=== PATIENT | male | born 1950 | race Caucasian/White ===

== ENCOUNTER → 2017-07-22 | Outpatient (CLI) | payer OTHER ==
[2017-07-22 12:16] LABS: BASO % 0.3 %; BASO ABS # 0.02 K/uL (0-0.2); EOS % 4.6 %; EOS ABS # 0.31 K/uL (0-0.5); HEMATOCRIT 31.3 % (42-52); HEMOGLOBIN 10.2 g/dL (14.0-18.0); IG# 0.05 K/uL (0.00-0.02); LYMPH % 11.9 %; MEAN CELL VOLUME 84.1 fL (80-100); MEAN CORPUSCULAR HEMOGLOBIN 27.4 pg (25-34); MEAN CORPUSCULAR HGB CONC 32.6 g/dl (32-36); MEAN PLATELET VOLUME 9.9 fL (7.4-10.4); MONO % 5.9 %; NEUT % 76.6 %; NEUT ABS # 5.16 K/uL (1.4-6.5); PLATELET COUNT 239 K/uL (130-400); RED CELL DISTRIBUTION WIDTH CV 15.1 % (11.5-14.5); RED CELL DISTRIBUTION WIDTH SD 45.2 fL (36.4-46.3); WHITE BLOOD COUNT 6.74 K/uL (4.8-10.8)
[2017-07-22 12:50] LABS: BLOOD UREA NITROGEN 28 mg/dl (7-18); CALCIUM 9.5 mg/dl (8.5-10.1); CARBON DIOXIDE 22 mmol/L (21-32); CREATININE 2.14 mg/dl (0.60-1.40); GLUCOSE 141 mg/dl (70-99); SODIUM 141 mmol/L (136-145)
--- NOTE | 2017-08-05 11:07 | CODING QUERY NO DIAGNOSIS ---
Valid Physician Order Needed A valid physician order must be submitted in order to properly bill for the service(s) provided, including date of service(s), valid diagnosis, and physician signature. If these tests are done on a recurring basis the original physican order must be submitted in order to code and bill for the service(s) provided. Please fax us the original, signed physician order so that we may expedite billing to [phone] DOS 07/22/17 * CBC W/ AUTO DIFF * PARTIAL RENAL PROFILE Thank you Dasia [facility] Information Management
== END | disposition home or self-care (01) ==
LOC: C.LABSPEC 10:25
PROVIDERS: ATTEND Specialist
DX: N11.9 Chronic tubulo-interstitial nephritis, unspecified (principal); B96.3 Hemophilus influenzae [H. influenzae] as the cause of diseases classified elsewhere; Z48.816 Encounter for surgical aftercare following surgery on the genitourinary system

== ENCOUNTER → 2017-07-29 | Outpatient (CLI) | payer OTHER ==
[2017-07-29 12:14] LABS: BASO % 0.4 %; BASO ABS # 0.02 K/uL (0-0.2); EOS % 3.9 %; EOS ABS # 0.22 K/uL (0-0.5); HEMATOCRIT 32.1 % (42-52); HEMOGLOBIN 10.5 g/dL (14.0-18.0); IG# 0.03 K/uL (0.00-0.02); LYMPH % 14.6 %; LYMPH ABS # 0.83 K/uL (1.2-3.4); MEAN CELL VOLUME 83.8 fL (80-100); MEAN CORPUSCULAR HEMOGLOBIN 27.4 pg (25-34); MEAN CORPUSCULAR HGB CONC 32.7 g/dl (32-36); MEAN PLATELET VOLUME 10.5 fL (7.4-10.4); MONO % 4.2 %; MONO ABS # 0.24 K/uL (0.11-0.59); NEUT % 76.4 %; NEUT ABS # 4.34 K/uL (1.4-6.5); PLATELET COUNT 211 K/uL (130-400); RED CELL DISTRIBUTION WIDTH CV 15.6 % (11.5-14.5); RED CELL DISTRIBUTION WIDTH SD 47.5 fL (36.4-46.3); WHITE BLOOD COUNT 5.68 K/uL (4.8-10.8)
[2017-07-29 12:41] LABS: BLOOD UREA NITROGEN 23 mg/dl (7-18); CALCIUM 9.1 mg/dl (8.5-10.1); CARBON DIOXIDE 20 mmol/L (21-32); CREATININE 1.89 mg/dl (0.60-1.40); GLUCOSE 140 mg/dl (70-99); POTASSIUM 3.9 mmol/L (3.5-5.1); SODIUM 140 mmol/L (136-145)
== END | disposition home or self-care (01) ==
LOC: C.LABSPEC 08:48
PROVIDERS: ATTEND Specialist
DX: Z51.81 Encounter for therapeutic drug level monitoring (principal); Z79.2 Long term (current) use of antibiotics; N11.9 Chronic tubulo-interstitial nephritis, unspecified; N20.0 Calculus of kidney; B96.5 Pseudomonas (aeruginosa) (mallei) (pseudomallei) as the cause of diseases classified elsewhere; B96.20 Unspecified Escherichia coli [E. coli] as the cause of diseases classified elsewhere; C61 Malignant neoplasm of prostate

== ENCOUNTER → 2017-08-05 | Outpatient (CLI) | payer OTHER ==
[2017-08-05 17:35] LABS: BASO % 0.2 %; BASO ABS # 0.01 K/uL (0-0.2); EOS % 3.6 %; EOS ABS # 0.22 K/uL (0-0.5); HEMATOCRIT 34.5 % (42-52); HEMOGLOBIN 11.3 g/dL (14.0-18.0); IG# 0.01 K/uL (0.00-0.02); LYMPH ABS # 0.74 K/uL (1.2-3.4); MEAN CELL VOLUME 84.1 fL (80-100); MEAN CORPUSCULAR HEMOGLOBIN 27.6 pg (25-34); MEAN CORPUSCULAR HGB CONC 32.8 g/dl (32-36); MEAN PLATELET VOLUME 10.8 fL (7.4-10.4); MONO % 8.6 %; MONO ABS # 0.53 K/uL (0.11-0.59); NEUT % 75.4 %; NEUT ABS # 4.68 K/uL (1.4-6.5); PLATELET COUNT 224 K/uL (130-400); RED CELL DISTRIBUTION WIDTH CV 15.8 % (11.5-14.5); RED CELL DISTRIBUTION WIDTH SD 48.7 fL (36.4-46.3); WHITE BLOOD COUNT 6.19 K/uL (4.8-10.8)
[2017-08-05 17:53] LABS: BLOOD UREA NITROGEN 28 mg/dl (7-18); CALCIUM 9.8 mg/dl (8.5-10.1); CARBON DIOXIDE 25 mmol/L (21-32); CREATININE 1.79 mg/dl (0.60-1.40); GLUCOSE 69 mg/dl (70-99); POTASSIUM 4.3 mmol/L (3.5-5.1); SODIUM 138 mmol/L (136-145)
== END | disposition home or self-care (01) ==
LOC: C.LABSPEC 13:34
PROVIDERS: ATTEND Specialist
DX: Z51.81 Encounter for therapeutic drug level monitoring (principal); Z79.2 Long term (current) use of antibiotics; N20.0 Calculus of kidney; B96.5 Pseudomonas (aeruginosa) (mallei) (pseudomallei) as the cause of diseases classified elsewhere; B96.20 Unspecified Escherichia coli [E. coli] as the cause of diseases classified elsewhere; C61 Malignant neoplasm of prostate

== ENCOUNTER 2021-09-15 10:36 | Inpatient (IN) ==
--- NOTE | 2021-09-15 11:08 | Emergency Department Note ---
History of Present Illness General Chief complaint: Fever Stated complaint: CHEMO ON SAT, NOW HAS FEVER OF 101.2 Time Seen by Provider: 09/15/21 10:51 History of Present Illness 71-year-old male presents to the ED with a chief complaint of a fever. The patient states that he had chemotherapy on Saturday for bladder cancer. He has had this last week and then previously in August as well. This morning he awo ke with a fever of 101.2. He states that he felt pretty good this morning other than the fever. He does have a ureterostomy. Denies any upper respiratory complaints. No abdominal pains. No nausea vomiting. He states that he does feel little fatigued. No additional complaints. Allergies Allergy/AdvReac Type Severity Reaction Status Date / Time clopidogrel AdvReac itching Verified 09/15/21 12:25 Past Med/Surg History Social History Smoking Status: Never smoker Feels Safe at Home: Yes Review of Systems A total of 10 systems reviewed and were otherwise negative Physical Exam Vital Signs Vital Signs - 24 hr 09/15/21 10:40 09/15/21 10:59 09/15/21 11:00 Temperature 36.6 C Temperature Source Oral Pulse Rate 122 H 106 H 104 H Pulse Rate from SpO2 Sensor 106 H 104 H Pulse Rhythm Regular Pulse Strength Normal Respiratory Rate 20 19 17 Respiratory Effort / Characteristics Non-Labored Spontaneous Respiratory Depth Normal Respiratory Pattern Regular Blood Pressure 88/54 L Blood Pressure Mean 65 Pulse Oximetry 99 97 98 Oxygen Delivery Method Room Air Sepsis Recent Fever Within 48 Hours Yes Sepsis New/Unexplained Change in Mental Status N/A Sepsis Action Taken by Nursing No Action Required 09/15/21 11:13 09/15/21 11:15 09/15/21 11:22 Temperature Temperature Source Pulse Rate 103 H 103 H Pulse Rate from SpO2 Sensor 103 H 103 H Pulse Rhythm Pulse Strength Respiratory Rate 19 16 Respiratory Effort / Characteristics Respiratory Depth Respiratory Pattern Blood Pressure 113/64 Blood Pressure Mean 80 Pulse Oximetry 96 96 96 Oxygen Delivery Method Room Air Sepsis Recent Fever Within 48 Hours Sepsis New/Unexplained Change in Mental Status Sepsis Action Taken by Nursing 09/15/21 11:30 09/15/21 11:45 Temperature Temperature Source Pulse Rate 102 H 101 H Pulse Rate from SpO2 Sensor 105 H 101 H Pulse Rhythm Pulse Strength Respiratory Rate 18 20 Respiratory Effort / Characteristics Respiratory Depth Respiratory Pattern Blood Pressure 106/65 Blood Pressure Mean 78 Pulse Oximetry 95 96 Oxygen Delivery Method Sepsis Recent Fever Within 48 Hours Sepsis New/Unexplained Change in Mental Status Sepsis Action Taken by Nursing CONSTITUTIONAL/VITAL SIGNS: Reviewed / noted above. GENERAL: Non-toxic in appearance. INTEGUMENTARY: Warm, dry, and [place]. HEAD: Normocephalic. EYES: without scleral icterus or trauma. ENT/OROPHARYNX: clear and moist. LYMPHADENOPATHY/NECK: Is supple without lymphadenopathy or meningismus. RESPIRATORY: Clear to auscultation bilaterally. No increased work of breathing. CARDIOVASCULAR: Regular rate and rhythm. GI/ABDOMEN: Soft and nontender. No organomegaly or pulsatile mass. Ureterostomy. Urine was light yellow and clear. Some sediment. EXTREMITIES: Warm and well perfused. BACK: No CVA tenderness. NEUROLOGICAL: Intact without focal deficits. PSYCHIATRIC: normal affect. MUSCULOSKELETAL: Normally developed with good muscle tone. TRIAGE NURSING DOCUMENTATION REVIEWED. Course Administered Medications Sodium Chloride (Nss 1000ml) 1,000 mls @ 999 mls/hr IV .Q1H1M ONE Stop: 09/15/21 12:53 Last Admin: 09/15/21 12:00 Dose: 999 mls/hr Documented by: [id number] Discontinued Medications Cefepime HCl (Maxipime) 2,000 mg in 20 mls @ 5 mls/min IV NOW STA; Protocol Stop: 09/15/21 11:51 Last Admin: 09/15/21 12:00 Dose: 5 mls/min Documented by: [id number] Medical Decision Making Differential Diagnosis Differential includes viral illness, influenza, streptococcal pharyngitis, meningitis, pneumonia, sinusitis, UTI, pyelonephritis, otitis media. Medical Records Attestation: I reviewed the patient's medical records. Home Medications Current Medication List: was personally reviewed by me Laboratory Data Attestation: I reviewed the patient's lab results. Result diagrams: 09/15/21 11:10 09/15/21 11:10 Lab Results 09/15/21 09/15/21 09/15/21 Range/Units 11:10 11:10 11:10 WBC 16.03 H (4.8-10.8) K/uL RBC 2.86 L (4.7-6.1) M/uL Hgb 7.4 L (14.0-18.0) g/dL Hct 23.6 L (42-52) % MCV 82.5 (80-100) fL MCH 25.9 (25-34) pg MCHC 31.4 L (32-36) g/dL RDW Std Deviation 60.9 H (36.4-46.3) fL RDW Coeff of Staci 20.0 H (11.5-14.5) % Plt Count 39 L (130-400) K/uL PT 11.2 (9.0-12.0) Seconds INR 1.1 (0.9-1.1) APTT 29.6 (21.0-31.0) Seconds PTT Ratio 1.1 Sodium 135 L (136-145) mmol/L Potassium 3.6 (3.5-5.1) mmol/L Chloride 109 H (98-107) mmol/L Carbon Dioxide 17 L (21-32) mmol/L Anion Gap 9 (3-11) BUN 41 H (6-23) mg/dl Creatinine 1.70 H (0.6-1.4) mg/dl Est Cr Clr Drug Dosing 45.0 ml/min Est GFR ( Amer) 46.7 ml/min Est GFR (Non-Af Amer) 40.3 ml/min BUN/Creatinine Ratio 24.1 H (10-20) Glucose 158 H (70-99) mg/dl Lactate (0.4-2.0) mmol/L Calcium 8.0 L (8.5-10.1) mg/dl Magnesium 1.7 (1.7-2.4) mg/dl Total Bilirubin 0.9 (0.2-1.0) mg/dl AST 80 H (13-39) U/L ALT 135 H (7-52) U/L Alkaline Phosphatase 233 H (34-104) U/L Total Protein 5.6 L (6.0-8.3) gm/dl Albumin 2.3 L (3.4-5.0) gm/dl Globulin 3.3 (2.5-4.0) gm/dl Albumin/Globulin Ratio 0.7 L (0.9-2) Procalcitonin (0-0.5) ng/ml SARS-CoV-2, RNA, NAAT (NEGATIVE) 09/15/21 09/15/21 09/15/21 Range/Units 11:10 11:10 11:35 WBC (4.8-10.8) K/uL RBC (4.7-6.1) M/uL Hgb (14.0-18.0) g/dL Hct (42-52) % MCV (80-100) fL MCH (25-34) pg MCHC (32-36) g/dL RDW Std Deviation (36.4-46.3) fL RDW Coeff of Staci (11.5-14.5) % Plt Count (130-400) K/uL PT (9.0-12.0) Seconds INR (0.9-1.1) APTT (21.0-31.0) Seconds PTT Ratio Sodium (136-145) mmol/L Potassium (3.5-5.1) mmol/L Chloride (98-107) mmol/L Carbon Dioxide (21-32) mmol/L Anion Gap (3-11) BUN (6-23) mg/dl Creatinine (0.6-1.4) mg/dl Est Cr Clr Drug Dosing ml/min Est GFR ( Amer) ml/min Est GFR (Non-Af Amer) ml/min BUN/Creatinine Ratio (10-20) Glucose (70-99) mg/dl Lactate 3.0 H* (0.4-2.0) mmol/L Calcium (8.5-10.1) mg/dl Magnesium (1.7-2.4) mg/dl Total Bilirubin (0.2-1.0) mg/dl AST (13-39) U/L ALT (7-52) U/L Alkaline Phosphatase (34-104) U/L Total Protein (6.0-8.3) gm/dl Albumin (3.4-5.0) gm/dl Globulin (2.5-4.0) gm/dl Albumin/Globulin Ratio (0.9-2) Procalcitonin 1.80 H (0-0.5) ng/ml SARS-CoV-2, RNA, NAAT NEGATIVE (NEGATIVE) Imaging Data Radiologist's Impression: Chest X-Ray 09/15/21 11:02 XR chest 1V portable HISTORY: 71 years-old Male SEPSIS acute sepsis COMPARISON: None TECHNIQUE: Portable AP view of the chest FINDINGS: The cardiac silhouette is normal in size. There is no pneumothorax or large pleural effusion. Moderate right hemidiaphragmatic elevation. Linear subsegm ental bibasilar densities. A right IJ Kiniqb-n-Xydz catheter distal tip terminates over the superior cavoatrial junction. The bones appear grossly intact. IMPRESSION: Moderate right hemidiaphragmatic elevation with linear bibasilar densities suggestive of atelectasis/scarring. ACT 112: Negative or not required by law. The above report was generated using voice recognition software. It may contain grammatical, syntax or spelling errors. Electronically signed by: Gopal Dudley M.D. 09/15/2021 12:00 PM ECG Data Attestation: I personally reviewed and interpreted this ECG as follows: Additional Comments: Twelve-lead EKG: Per my interpretation shows a sinus tach at a rate of 105. No ST elevation. No PVCs. Normal QTC. MDM Narrative 71-year-old male presents with a fever in the setting of chemotherapy 3 days ago for bladder cancer Blood pressure is noted to be 88/54. Heart rate was 122. He is afebrile here but had a fever of 101.2 this morning at home. Twelve-lead EKG shows a sinus tach at a rate of 105. No ST elevation. With blood cell count of 16. Hemoglobin 7.4 point. states that he recently required blood transfusion in [place]. At that time his hemoglobin was around 8.7 following the blood transfusion. Lactic acid is 3.0. Mild transaminitis noted. COVID test was negative. Chest x-ray was negative for acute disease. The patient was empirically treated with IV antibiotics, cefepime. He was given a liter of normal saline IV. Because of his symptoms, he will be seen by the hospitalist for further inpatient evaluation and care. Impression & Plan Fever, Acute dehydration, Acute hypotension Discharge Plan Visit Data Chief Complaint: Fever Stated Complaint: CHEMO ON SAT, NOW HAS FEVER OF 101.2 ED Provider: Abdi Bean Discharge Problem: Fever, Acute dehydration, Acute hypotension Patient Disposition: Being Evaluated by Hospitalist Forms Stand Alone Forms: My [facility], Virtual Emergency Department, Important Visit Information Referrals Referrals: Rosalio Keys MD [Primary Care Provider] -
[2021-09-15 11:38] LABS: INR 1.1 (0.9-1.1); Partial Thromboplastin Ratio 1.1; Partial Thromboplastin Time 29.6 Seconds (21.0-31.0); Prothrombin Time 11.2 Seconds (9.0-12.0)
[2021-09-15] MEDS ORDERED: CEFEPIME 2,000 MG/20 ML VIAL IV STA (11:48)
[2021-09-15 11:51] LABS: Albumin Globulin Ratio 0.7 (0.9-2); Albumin Level 2.3 gm/dl (3.4-5.0); BUN Creatinine Ratio 24.1 (10-20); Bilirubin,Total 0.9 mg/dl (0.2-1.0); Est GFR (African American) 46.7 ml/min; Est GFR (Non-African American) 40.3 ml/min; Globulin 3.3 gm/dl (2.5-4.0); Magnesium 1.7 mg/dl (1.7-2.4); Potassium 3.6 mmol/L (3.5-5.1); Total Protein 5.6 gm/dl (6.0-8.3)
[2021-09-15] MEDS ORDERED: SODIUM CHLORIDE 0.9% 1000ML 1,000 ML IV ONE (11:53)
[2021-09-15 11:57] LABS: Hematocrit (blood only) 23.6 % (42-52); Hemoglobin 7.4 g/dL (14.0-18.0); Mean Corpuscular Hemoglobin 25.9 pg (25-34); Mean Corpuscular Hgb Conc 31.4 g/dL (32-36); Mean Corpuscular Volume 82.5 fL (80-100); RDW Standard Deviation 60.9 fL (36.4-46.3); Red Blood Count 2.86 M/uL (4.7-6.1); White Blood Count 16.03 K/uL (4.8-10.8)
--- NOTE | 2021-09-15 12:01 | XRay Report ---
XR chest 1V portable HISTORY: 71 years-old Male SEPSIS acute sepsis COMPARISON: None TECHNIQUE: Portable AP view of the chest FINDINGS: The cardiac silhouette is normal in size. There is no pneumothorax or large pleural effusion. Moderat e right hemidiaphragmatic elevation. Linear subsegmental bibasilar densities. A right IJ Cjxrxg-q-Bso t catheter distal tip terminates over the superior cavoatrial junction. The bones appear grossly inta ct. IMPRESSION: Moderate right hemidiaphragmatic elevation with linear bibasilar densities suggestive of atelectasis/scarring. ACT 112: Negative or not required by law. The above report was generated using voice recognition software. It may contain grammatical, syntax o r spelling errors. Electronically signed by: Gopal Dudley M.D. 09/15/2021 12:00 PM
[2021-09-15 12:16] LABS: Acanthocytes 1+; Anisocytosis Present; Basophils # (auto) 0.01 K/uL (0-0.2); Basophils % (auto) 0.1 %; Eosinophils # (auto) 0.23 K/uL (0-0.5); Eosinophils % (auto) 1.4 %; Immature Granulocytes # (auto) 0.09 K/uL (0.00-0.02); Immature Granulocytes % (auto) 0.6 %; Lymphocytes # (auto) 0.14 K/uL (1.2-3.4); Lymphocytes % (auto) 0.9 %; Monocytes # (auto) 0.02 K/uL (0.11-0.59); Monocytes % (auto) 0.1 %; Neutrophils # (auto) 15.54 K/uL (1.4-6.5); Neutrophils % (auto) 96.9 %; Ovalocytes 1+; Platelet Count 39 K/uL (130-400); Platelet Estimate Decreased (Normal)
--- NOTE | 2021-09-15 12:44 | History & Physical Report ---
Date of Service September 15, 2021 Assessment & Plan (1) Fever: Plan: Patient is 71 y/o M with PMH CAD s/p stent, HTN, dyslipidemia, CKD III-IV, chronic anemia, bladder cancer with metastasis to liver, kidney, lymph nodes s/p cystoprostatectomy and ileal conduit, currently undergoing chemo presented to ER with complaint of fever this morning of 101.2F. Reports feels rundown and has slight nausea. Denies abdominal pain. chronic exertional shortness of breath at baseline. Denies CP, PHILLIPS, hematuria, diarrhea. History fever in 08/2021 after initially starting chemo. Hospitalized at [facility] for possible pneumonia Today in ER T: 36.6C, R: 20, P:122, BP: 88/54 up to 106/65 99% on RA. WBC: 16, lactate: 3.0, procalcitonin: 1.8. CXR: bibasilar densities suggestive of atelectasis/scarring UA pending Was given 1L NSS, cefepime Blood cultures pending Urine culture pending MRSA swab pending Repeat lactate down to 1.6 Continue cefepime Gentle IVF CBC, CMP in a.m. (2) Bladder cancer: (3) History of ileal conduit: Plan: History of bladder cancer s/p cystoprostatectomy, ileal conduit Recent diagnosis of metastasis to liver, right kidney, abdominal lymph nodes 08/2021 started chemo and radiation however had to be held secondary to febrile illness Had gemcitabine 09/12/[address] Zulma Castro at [facility]. Plans to switch care locally with Dr Valenzuela (4) Sacral decubitus ulcer: Plan: +stage 2 sacral ulcer. no discharge wound nurse consult (5) Elevated LFTs: Plan: AST: 80, ALT: 135, alk phos: 233, T bili: 0.9. Labs from 09/12/2021: AST: 42, ALT: 85, Alk Phos: 247 Denies abdominal pain CMP in a.m. May need to consider abdominal imaging if worsening or develops abdominal discomfort (6) Chronic anemia: Plan: Thrombocytopenia Hgb: 7.4. Was 8.7 on 09/12/21. Plt: 39. Was 143 on 09/12/21. H/O Required PRBC transfusion in 08/2021 when Hgb dropped below 8 Ish, transfuse 1 unit PRBC (7) CKD (chronic kidney disease), stage III: Plan: Stage III-IV Baseline Cr~1.7 Cr: 1.7 Monitor and avoid nephrotoxic agents when possible (8) CAD (coronary artery disease): Plan: S/P stent Denies CP Continue statin, isosorbide (9) HTN (hypertension): Plan: Hold amlodipine as was hypotensive in ER History of Present Illness Chief Complaint: Fever Primary Care Provider: Rosalio Keys Patient is 71 y/o M with PMH CAD s/p stent, HTN, dyslipidemia, CKD III-IV, chronic anemia, bladder cancer with metastasis to liver, kidney, lymph nodes s/p cystoprostatectomy and ileal conduit, currently undergoing chemo presented to ER with complaint of fever. Reports this morning with temperature of 101.2F. Reports feels rundown and has slight nausea. Denies abdominal pain. Patient reports chronic exertional shortness of breath and feels this is at baseline. He reports no decreased amount of urine output or change in coloration or hematuria. Patient reports chronic constipation. Did have BM this morning which was formed. Denies melena or hematochezia. Takes Metamucil. Denies diaphoresis, vomiting, diarrhea, PHILLIPS, dizziness, syncope, vision changes, neck pain, CP, orthopnea, palpitations, cough, sore throat, choking, otalgia, rhinorrhea, abdominal pain, paresthesias, extremity weakness, extremity edema, rashes. Following with hematology/oncology at [facility] - Dr Cameron. Reports in August 2021 started chemoradiation however that had been discontinued secondary to febrile illness and hospitalization at [facility]. He reports at that time he had a questionable pneumonia and was treated with antibiotics discharged home. Patient reports he started chemo 1 week ago (carboplatin, gemcitabine). Last does of chemo on 09/12/21 (gemcitabine). Reports in August his hemoglobin was below 8 so he was given total 2 units PRBCs during his hospitalization. On 09/12/2021 hemoglobin of 8.7, PLT: 143, Cr: 1.7, AST: 42, ALT: 85, Alk Phos: 247. CXR: Right basilar atelectasis Today in ER T: 36.6C, R: 20, P:122, BP: 88/54, 99% on RA. WBC: 16, lactate: 3.0, procalcitonin: 1.8. CXR: bibasilar densities suggestive of atelectasis/scarring. Was given 1L NSS, cefepime. Allergies Allergy/AdvReac Type Severity Reaction Status Date / Time chlorhexidine AdvReac Unknown Unknown Unverified 09/15/21 12:59 clopidogrel AdvReac itching Verified 09/15/21 12:59 Home Medications Medication Instructions Recorded Confirmed Type Iron With Vitamin C 1 tab PO QAM 09/15/21 09/15/21 History Lactobacillus acidophilus 10 10,000 mmu cells PO BID 09/15/21 09/15/21 History billion cell capsule (Probiotic) albuterol sulfate 90 mcg/actuation 2 puff INHALATION Q6H PRN 09/15/21 09/15/21 History aerosol inhaler amlodipine 5 mg tablet 5 mg PO QAM 09/15/21 09/15/21 History atorvastatin 80 mg tablet 80 mg PO HS 09/15/21 09/15/21 History citalopram 20 mg tablet 20 mg PO HS 09/15/21 09/15/21 History docusate sodium 100 mg capsule 100 mg PO QAM 09/15/21 09/15/21 History (Colace) hydrocodone 5 mg-acetaminophen 325 1 tab PO Q6H PRN 09/15/21 09/15/21 History mg tablet isosorbide mononitrate 60 mg 60 mg PO QAM 09/15/21 09/15/21 History tablet,extended release 24 hr mirtazapine 15 mg tablet 7.5 mg PO HS 09/15/21 09/15/21 History nitroglycerin 0.4 mg sublingual 0.4 mg SUBLINGUAL Q5M PRN 09/15/21 09/15/21 History tablet ondansetron HCl 4 mg tablet 4 mg PO Q8H PRN 09/15/21 09/15/21 History prochlorperazine maleate 10 mg 10 mg PO Q6H PRN 09/15/21 09/15/21 History tablet Past Med/Surg History Medical History Bladder cancer CAD (coronary artery disease) Chronic anemia CKD (chronic kidney disease), stage III III-IV HTN (hypertension) Surgical History History of cholecystectomy History of heart artery stent History of ileal conduit S/P radical cystoprostatectomy Family History Brother Stroke Mother Stroke Father Heart disease Social History Smoking Status: Never smoker Second Hand Exposure: No; Do You Dip or Chew Tobacco: No; Tobacco Cessation Education Requested by Patient: No Hx Alcohol Use: Yes Hx Substance Use: No Preferred Language: Uz[place] Communication Ability: Effective Blood Or Blood Bank Technician Required: No Beliefs That Will Affect Care: None Current Living Situation: Spouse Other Information That Helps Us Care for You: No Feels Safe at Home: Yes Safety Concerns: Feels Safe At This Time Assistive Devices: None Review of Systems Review of Systems: All systems reviewed & are unremarkable except as noted in HPI & below Physical Exam Physical Exam: General: no distress, chronic ill appearing Head: normocephalic, atraumatic Eyes: PERRL, EOM's intact, conjunctiva non-injected, anicteric ENT: normal inspection external ears, nose, mucous membranes dry Neck: supple, trachea midline, non-tender Lungs: clear, no respiratory distress, no wheezing/rhonchi/rales CV: RRR, no murmur, no pretibial edema Abd: +stoma right abdomen with clear yellow urine noted in bag, normal BS, soft, non-tender Ext: no cyanosis, no calf tenderness Neuro: A&O x 3, no focal deficits noted, normal affect Skin: warm, dry, Sacrum: +nonblanching erythema with two stage 2 areas of approx 0.5cm ulcer, no discharge Results & Data Results & Data ([facility]) Vital Signs (Past 12 Hours) Vital Signs Temp Pulse Resp BP Pulse Ox 09/15/21 12:42 18 98 09/15/21 11:45 101 H 20 96 09/15/21 11:30 102 H 18 106/65 95 09/15/21 11:22 96 09/15/21 11:15 103 H 16 96 09/15/21 11:13 103 H 19 113/64 96 09/15/21 11:00 104 H 17 98 09/15/21 10:59 106 H 19 97 09/15/21 10:40 36.6 C 122 H 20 88/54 L 99 Laboratory Results Short CBC 09/15/21 Range/Units 11:10 WBC 16.03 H (4.8-10.8) K/uL Hgb 7.4 L (14.0-18.0) g/dL Hct 23.6 L (42-52) % Plt Count 39 L (130-400) K/uL BMP 09/15/21 11:10 Sodium 135 L Potassium 3.6 Chloride 109 H Carbon Dioxide 17 L BUN 41 H Creatinine 1.70 H Glucose 158 H Calcium 8.0 L Liver Function 09/15/21 Range/Units 11:10 Total Bilirubin 0.9 (0.2-1.0) mg/dl AST 80 H (13-39) U/L ALT 135 H (7-52) U/L Alkaline Phosphatase 233 H (34-104) U/L Albumin 2.3 L (3.4-5.0) gm/dl Urine 09/15/21 Range/Units 12:40 Urine Color Yellow Urine Appearance Clear (Clear) Urine pH 6.0 (4.5-7.5) Ur Specific [place] 1.014 (1.000-1.030) Urine Protein 2+ H (Negative) Urine Glucose (UA) Negative (Negative) Diagnostic Findings Chest X-Ray 09/15/21 11:02 XR chest 1V portable HISTORY: 71 years-old Male SEPSIS acute sepsis COMPARISON: None TECHNIQUE: Portable AP view of the chest FINDINGS: The cardiac silhouette is normal in size. There is no pneumothorax or large pleural effusion. Moderate right hemidiaphragmatic elevation. Linear subsegmental bibasilar densities. A right IJ Dmqaam-j-Qjft catheter distal tip terminates over the superior cavoatrial junction. The bones appear grossly intact. IMPRESSION: Moderate right hemidiaphragmatic elevation with linear bibasilar densities suggestive of atelectasis/scarring. ACT 112: Negative or not required by law. The above report was generated using voice recognition software. It may contain grammatical, syntax or spelling errors. Electronically signed by: Gopal Dudley M.D. 09/15/2021 12:00 PM Supervising Physician Co-Signing Physician Notes Care coordinated with Britney Vazquez PA-C. Agree with above note. Patient seen and examined. Please refer to her notes for full details. Vital signs reviewed. Physical exam: General exam: Alert and oriented. Not in acute distress. CVS: S1 and S2 heard, regular rate and rhythm, no murmurs. RS: Clear to auscultation, no wheezing or crackles. ABD: Soft, bowel sounds present, nontender, no distention. FOOD TRADES ASSISTANTS: Nonfocal. EXT: No edema, no erythema. Labs: Reviewed. Assessment and plan: 71Y M with hx of bladder cancer s/p s/p cystoprostatectomy and ileal conduit about 6yrs ago. In June 2021 he was having lot of sob and workup revealed metastatic bladder cancer with mets to liver, kidney and lymph nodes and on chemo since august. After first Chemo he developed fever and was admitted at [facility] and treated with iv abx for possible pneumonia. Currently he is getting chemo every Saturday(Two tuesdys in a row and then skipping one saturday). He had chemo this week. Today morning he was having fever, feeling weak and tried. nauseaous. appetite down. No chest pain. Has chronic exertional sob. currently hemodynamics stable. Febrile illness Recent chemo Empiric iv cefepime follw cultures and response MRSa screen close monitor. Elevated LFT follow repeat labs possible from mets. Anemia and thombocytopenia Hb 7.4 platelets 37 mostly from chemo blood consent obtained follow labs. Other diagnosis and plan of care as per Britney Vazquez PA-C. Milton mak MD. (1) Fever Fever type: unspecified Qualified Code(s): R50.9 - Fever, unspecified
[2021-09-15 12:51] LABS: Appearance Urine Clear (Clear); Bilirubin Urine Negative (Negative); Blood Urine 3+ (Negative); Color Urine Yellow; Glucose Urine UA Negative (Negative); Ketones Urine Negative (Negative); Leukocyte Esterase Urine 1+ (Negative); Nitrite Urine Negative (Negative); Protein Urine 2+ (Negative); Specific Gravity Urine 1.014 (1.000-1.030); Urobilinogen Urine Negative (Negative); WBC Urine Automated >30 /hpf (0-5)
[2021-09-15 13:32] LABS: RBC Urine Automated >30 /hpf (0-4)
[2021-09-15 13:33] LABS: Bacteria Urine Automated 1+ (Negative)
[2021-09-15] MEDS ORDERED: POLYETHYLENE (MIRALAX) 17 GM PACK PO PRN (15:16)
[2021-09-15] MEDS ORDERED: ACETAMINOPHEN 325 MG TAB PO PRN (15:16)
[2021-09-15] MEDS ORDERED: SODIUM CHLORIDE 0.9% 250 ML IV PRN (15:16)
[2021-09-15] MEDS ORDERED: NITROGLYCERIN SL 0.4 MG/TAB TAB SL PRN (15:16)
[2021-09-15] MEDS: D5W AND NSS 1,000 ML IV SCH (17:37)
--- NOTE | 2021-09-15 19:41 | Electrocardiogram Report ---
Test Reason : Blood Pressure : / mmHG Vent. Rate : 105 BPM Atrial Rate : 105 BPM P-R Int : 130 ms QRS Dur : 082 ms QT Int : 314 ms P-R-T Axes : 048 018 074 degrees QTc Int : 415 ms Sinus tachycardia Otherwise normal ECG No previous ECGs available Confirmed by Duane Dallas ([id number]) on 09/15/2021 7:41:01 PM Referred By: REFERRED SELF Confirmed By:Duane Dallas
[2021-09-15] MEDS: CITALOPRAM 20 MG TAB PO SCH (21:41)
[2021-09-15] MEDS: CEFEPIME 2,000 MG in SYRINGE 0 ML IV SCH (21:41)
[2021-09-15] MEDS: ATORVASTATIN 40 MG TAB PO SCH (21:41)
[2021-09-15] MEDS: MIRTAZAPINE TAB 15 MG TAB PO SCH (21:42)
[2021-09-15] MEDS ORDERED: Nursing to Pharmacy Communication SCH (22:00)
[2021-09-16] MEDS ORDERED: [UNRECOGNIZED DRUG - OTHER] PO SCH (09:00)
[2021-09-16] MEDS: ADVANCED PROBIOTIC 1250 MG CAPSULE PO SCH (09:10)
[2021-09-16] MEDS: DOCUSATE SODIUM 100 MG CAP PO SCH (09:10)
[2021-09-16] MEDS: CEFEPIME 2,000 MG in SYRINGE 0 ML IV SCH ×2 (09:10→21:13)
[2021-09-16] MEDS: ISOSORBIDE MONO EXTENDED REL 60 MG TABCR PO SCH (09:11)
[2021-09-16 09:49] LABS: Albumin Globulin Ratio 0.7 (0.9-2); BUN Creatinine Ratio 26.7 (10-20); Bilirubin,Total 0.9 mg/dl (0.2-1.0); Calcium 7.5 mg/dl (8.5-10.1); Creatinine Clr Calc Pharmacy 52.4 ml/min; Est GFR (African American) 56.1 ml/min; Est GFR (Non-African American) 48.4 ml/min; Globulin 2.8 gm/dl (2.5-4.0); Potassium 3.5 mmol/L (3.5-5.1); Total Protein 4.8 gm/dl (6.0-8.3)
[2021-09-16 10:01] LABS: Acanthocytes 1+; Anisocytosis Present; Eosinophils # (auto) 0.06 K/uL (0-0.5); Eosinophils % (auto) 0.7 %; Hematocrit (blood only) 21.9 % (42-52); Immature Granulocytes # (auto) 0.02 K/uL (0.00-0.02); Immature Granulocytes % (auto) 0.2 %; Lymphocytes # (auto) 0.17 K/uL (1.2-3.4); Mean Corpuscular Hemoglobin 26.3 pg (25-34); Mean Corpuscular Volume 82.3 fL (80-100); Neutrophils # (auto) 8.32 K/uL (1.4-6.5); Neutrophils % (auto) 97.1 %; Ovalocytes 1+; Platelet Count 23 K/uL (130-400); Platelet Estimate SIGNIFIC DECREASED (Normal); RDW Coefficient of Variation 19.3 % (11.5-14.5); RDW Standard Deviation 59.2 fL (36.4-46.3); Red Blood Count 2.66 M/uL (4.7-6.1); White Blood Count 8.57 K/uL (4.8-10.8)
[2021-09-16] MEDS: D5W AND NSS 1,000 ML IV SCH (11:01)
[2021-09-16] MEDS ORDERED: ACETAMINOPHEN 325 MG TAB PO ONE (11:41)
[2021-09-16] MEDS ORDERED: SODIUM CHLORIDE 0.9% 250 ML IV PRN (11:41)
[2021-09-16] MEDS ORDERED: diphenhydrAMINE Capsule 25 MG CAP PO ONE (11:41)
--- NOTE | 2021-09-16 12:10 | Hospitalist Progress Note ---
Date of Service September 16, 2021 Assessment & Plan (1) Sepsis: Plan: Uncertain source, no evidence of pneumonia, possible UTI although this may be contamination from the bag. He also has a Stag II sacral ulcer, so skin bacteria also a possibility vs adverse drug effect from the chemotherapy as infusion was 2 days prior to arrival. This list is not exhaustive. He is resuscitated and clinically feels improved. Cont cefepime pending cultures and continued clinical improvement. Cont IVF for now until blood given and he is eating more robustly. (2) Bladder cancer: Plan: History of bladder cancer s/p cystoprostatectomy, ileal conduit Recent diagnosis of metastasis to liver, right kidney, abdominal lymph nodes 08/2021 started chemo and radiation however had to be held secondary to febrile illness Had gemcitabine 09/12/[address] Zulma Castro at [facility]. Plans to switch care locally with Dr Valenzuela (3) Anemia associated with chemotherapy: Plan: Anemia likely 2/2 recent chemotherapy and also possible occult GI blood loss with known mass that was radiated for bleeding one month ago. Will give and additional unit of blood at this time with current H/H and symptoms with standing. Repeat CBC this evening. No overt bleeding is seen. (4) Thrombocytopenia: Plan: Platelets were 143 on 09/12 per outpatient records. Thrombocytopenia is likely multifactorial including consumption from sepsis, recent chemotherapy and possibly dilution after fluid resuscitation. Cont to trend. Transfuse if <10K or if <20K if bleeding or fever present. (5) History of ileal conduit: (6) Sacral decubitus ulcer: Plan: +stage 2 sacral ulcer. no discharge wound nurse consult (7) Elevated LFTs: Plan: AST/ALT improved with treatment overnight. Outside of new kidney stones in his urine bag, not seeing any further reason to image him at this time. He has no abdominal pain and is tolerating PO. Cont to monitor. (8) CKD (chronic kidney disease), stage III: Plan: Currently at baseline, avoid nephrotoxic agents and renally dose meds as able. (9) CAD (coronary artery disease): Plan: chronic, stable S/P stent in past. Denies CP. Cont medical management with statin, isosorbide (10) HTN (hypertension): Plan: Hold amlodipine as was hypotensive in ER (11) DVT prophylaxis: Plan: SCDs, chemoprophylaxis is contraindicated. Full Dispo-pending clinical improvement and culture results. I spoke with her daughter, Lilo, regarding his care plan. Luli Malave DO [facility] Hospitalist Admission and Anticipated Discharge Date Admission Date: September 15, 2021 Subjective 71 yo M with bladder cancer with metastatic disease presents 2 days after gemcitabine and cisplatin with a fever. Denies respiratory symptoms, chronic SOB not much worse than his recent baseline in last 6 months, denied any urinary symptoms or blood into his bag, however, he does notice that he is passing some kidney stones here. He has had these before and is not having any pain from this. No fever overnight and he reports feeling better today. Received 1 unit of blood last night and H/H down to 03/22. Patient is reporting lightheadedness with standing. Has a h/o radiation to bowels last month for some rectal bleeding from a metastatic mass, but reports stool has appeared unchanged in recent weeks. Patient noted a fever in Dec after last chemotherapy trial, also. Presumed pneumonia as the source, but daughter, who is a physician, said it was somewhat undetermined. Review of Systems Review of Systems: All systems were reviewed and negative except as indicated above. Physical Exam Physical Exam: CONSTITUTIONAL: WNWD, vitals as above, NAD EYES: normal conjunctivae, no scleral icterus, no fundoscopic abnormality ENT: external ear and nose normal, oropharynx clear, NECK: trachea midline, RESPIRATORY: clear to auscultation bilaterally, no crackles, rales or wheezes, normal respiratory effort CARDIOVASCULAR: regular rate and rhythm, S1 and 2 heard without murmurs, gallops or rubs, no JVD, no peripheral edema CHEST: port accessed in anterior right chest GASTROINTESTINAL: soft, nontender, no guarding, ileal conduit draining into catheter bag with light yellow urine, no blood. MUSCULOSKELETAL: strength 5/5 throughout, head is normocephalic and atraumatic SKIN: warm and dry, NEUROLOGIC: No facial palsy, no dysarthria. CN 2-12 grossly intact, no sensory deficit, normal cognition, normal speech, no tremor PSYCHIATRIC: alert cooperative and oriented to person, place and time. Results & Data Results & Data ([facility]) Vital Signs (Past 12 Hours) Vital Signs Temp Pulse Pulse Resp BP Pulse Ox 09/16/21 10:55 36.7 C 102 H 18 114/65 96 09/16/21 09:46 94 H 09/16/21 07:39 36.7 C 86 19 124/71 96 09/16/21 03:57 37.5 C 96 H 18 123/66 98 Laboratory Results Short CBC 09/15/21 09/15/21 09/15/21 Range/Units 11:10 12:54 15:35 WBC 16.03 H (4.8-10.8) K/uL Hgb 7.4 L (14.0-18.0) g/dL Hct 23.6 L (42-52) % Plt Count 39 L (130-400) K/uL Blood Type A Positive Blood Type Recheck A Positive Antibody Screen NEGATIVE Crossmatch See Detail 09/16/21 Range/Units 09:15 WBC 8.57 (4.8-10.8) K/uL Hgb 7.0 L (14.0-18.0) g/dL Hct 21.9 L (42-52) % Plt Count 23 L* (130-400) K/uL Blood Type Blood Type Recheck Antibody Screen Crossmatch BMP 09/16/21 09:15 Sodium 135 L Potassium 3.5 Chloride 111 H Carbon Dioxide 19 L BUN 39 H Creatinine 1.46 H Glucose 118 H Calcium 7.5 L Liver Function 09/16/21 Range/Units 09:15 Total Bilirubin 0.9 (0.2-1.0) mg/dl AST 32 (13-39) U/L ALT 83 H (7-52) U/L Alkaline Phosphatase 171 H (34-104) U/L Albumin 2.0 L (3.4-5.0) gm/dl Urine 09/15/21 Range/Units 12:40 Urine Color Yellow Urine Appearance Clear (Clear) Urine pH 6.0 (4.5-7.5) Ur Specific [place] 1.014 (1.000-1.030) Urine Protein 2+ H (Negative) Urine Glucose (UA) Negative (Negative) Medications Administered Current Inpatient Medications Acetaminophen (Acetaminophen 325 Mg Tab) 650 mg PO Q4H PRN PRN Reason: Pain or Fever Stop: 10/15/21 15:15 Acetaminophen (Acetaminophen 325 Mg Tab) 650 mg PO PRE-TREAT ONE Stop: 09/16/21 19:41 Atorvastatin Calcium (Atorvastatin 40 Mg Tab) 80 mg PO HS [facility] Stop: 10/15/21 20:59 Last Admin: 09/15/21 21:41 Dose: 80 mg Documented by: Citalopram Hydrobromide (Citalopram 20 Mg Tab) 20 mg PO HS [facility] Stop: 10/15/21 20:59 Last Admin: 09/15/21 21:41 Dose: 20 mg Documented by: Diphenhydramine HCl (Diphenhydramine Capsule 25 Mg Cap) 12.5 mg PO PRE-TREAT ONE Stop: 09/16/21 19:42 Docusate Sodium (Docusate Sodium 100 Mg Cap) 100 mg PO QAM [facility] Stop: 10/16/21 08:59 Last Admin: 09/16/21 09:10 Dose: 100 mg Documented by: Heparin Sodium (Porcine) (Heparin 100 Unit/Ml 5ml Flush) 5 ml FLUSH PRN PRN PRN Reason: Flush Stop: 10/16/21 01:56 Cefepime HCl 2,000 mg/ Syringe 20 mls @ 5 mls/min IV Q12 [facility]; Protocol Stop: 09/17/21 20:59 Last Admin: 09/16/21 09:10 Dose: 5 mls/min Documented by: Sodium Chloride (Nss) 250 mls @ 15 mls/hr IV .[id number] PRN PRN Reason: For Transfusion Stop: 10/15/21 15:15 Dextrose/Sodium Chloride (D5w And Nss) 1,000 mls @ 80 mls/hr IV .[id number] [facility] Stop: 09/16/21 21:29 Last Admin: 09/16/21 11:01 Dose: 80 mls/hr Documented by: Sodium Chloride (Nss) 250 mls @ 15 mls/hr IV .[id number] PRN PRN Reason: For Transfusion Stop: 09/16/21 21:42 Isosorbide Mononitrate (Isosorbide [place] Extended Rel 60 Mg Tabcr) [facility] [place]: 10/16/21 08:59 Last Admin: 09/16/21 09:11 Dose: 60 mg Documented by: Lactobacillus Acidoph/Casei/Rhamnos (Advanced Probiotic 1250 Mg Capsule) 2 cap PO DAILY [facility] Stop: 10/16/21 08:59 Last Admin: 09/16/21 09:10 Dose: 2 cap Documented by: Mirtazapine (Mirtazapine Tab 15 Mg Tab) 7.5 mg PO HS [facility] Stop: 10/15/21 20:59 Last Admin: 09/15/21 21:42 Dose: 7.5 mg Documented by: Nitroglycerin (Nitroglycerin Sl 0.4 Mg/Tab Tab) 0.4 mg SL Q5M PRN PRN Reason: Chest Pain Stop: 10/15/21 15:15 Ondansetron HCl (Ondansetron Inj 2 Mg/Ml 2 Ml Vial) 4 mg IV Q6H PRN PRN Reason: Nausea Stop: 10/15/21 15:15 Polyethylene Glycol (Polyethylene (Miralax) 17 Gm Pack) 17 gm PO DAILY PRN PRN Reason: Constipation Stop: 10/15/21 15:15
[2021-09-16 19:06] LABS: Echinocytes 1+; Eosinophils # (auto) 0.06 K/uL (0-0.5); Hematocrit (blood only) 23.5 % (42-52); Hemoglobin 7.7 g/dL (14.0-18.0); Immature Granulocytes # (auto) 0.01 K/uL (0.00-0.02); Immature Granulocytes % (auto) 0.2 %; Lymphocytes # (auto) 0.22 K/uL (1.2-3.4); Lymphocytes % (auto) 3.7 %; Mean Corpuscular Hemoglobin 27.1 pg (25-34); Mean Corpuscular Hgb Conc 32.8 g/dL (32-36); Mean Corpuscular Volume 82.7 fL (80-100); Monocytes # (auto) 0.01 K/uL (0.11-0.59); Monocytes % (auto) 0.2 %; Neutrophils # (auto) 5.59 K/uL (1.4-6.5); Neutrophils % (auto) 94.9 %; Ovalocytes 1+; Platelet Count 24 K/uL (130-400); Platelet Estimate SIGNIFIC DECREASED (Normal); RDW Coefficient of Variation 18.7 % (11.5-14.5); RDW Standard Deviation 56.8 fL (36.4-46.3); Red Blood Count 2.84 M/uL (4.7-6.1); White Blood Count 5.89 K/uL (4.8-10.8)
[2021-09-16] MEDS: CITALOPRAM 20 MG TAB PO SCH (21:13)
[2021-09-16] MEDS: ATORVASTATIN 40 MG TAB PO SCH (21:13)
[2021-09-16] MEDS: MIRTAZAPINE TAB 15 MG TAB PO SCH (21:13)
[2021-09-17] MEDS: ADVANCED PROBIOTIC 1250 MG CAPSULE PO SCH (08:13)
[2021-09-17] MEDS: ISOSORBIDE MONO EXTENDED REL 60 MG TABCR PO SCH (08:13)
[2021-09-17] MEDS: DOCUSATE SODIUM 100 MG CAP PO SCH (08:14)
[2021-09-17] MEDS: CEFEPIME 2,000 MG in SYRINGE 0 ML IV SCH (08:20)
[2021-09-17 08:45] LABS: Platelet Count 15 K/uL (130-400)
[2021-09-17 08:46] LABS: Anisocytosis Present; Echinocytes 1+; Eosinophils # (auto) 0.07 K/uL (0-0.5); Eosinophils % (auto) 2.8 %; Hematocrit (blood only) 23.1 % (42-52); Hemoglobin 7.4 g/dL (14.0-18.0); Immature Granulocytes # (auto) 0.03 K/uL (0.00-0.02); Immature Granulocytes % (auto) 1.2 %; Lymphocytes # (auto) 0.11 K/uL (1.2-3.4); Lymphocytes % (auto) 4.4 %; Mean Corpuscular Hemoglobin 26.8 pg (25-34); Mean Corpuscular Volume 83.7 fL (80-100); Monocytes # (auto) 0.01 K/uL (0.11-0.59); Monocytes % (auto) 0.4 %; Neutrophils # (auto) 2.29 K/uL (1.4-6.5); Neutrophils % (auto) 91.2 %; Platelet Estimate SIGNIFIC DECREASED (Normal); Poikilocytosis Present; RDW Coefficient of Variation 18.7 % (11.5-14.5); RDW Standard Deviation 58.2 fL (36.4-46.3); Red Blood Count 2.76 M/uL (4.7-6.1); Spherocytes 1+; White Blood Count 2.51 K/uL (4.8-10.8)
[2021-09-17 08:56] LABS: BUN Creatinine Ratio 28.1 (10-20); Calcium 7.6 mg/dl (8.5-10.1); Creatinine Clr Calc Pharmacy 59.8 ml/min; Est GFR (African American) 65.7 ml/min; Est GFR (Non-African American) 56.7 ml/min; Magnesium 1.7 mg/dl (1.7-2.4); Phosphorus 2.3 mg/dl (2.5-4.9); Potassium 3.5 mmol/L (3.5-5.1)
--- NOTE | 2021-09-17 13:57 | Hospitalist Progress Note ---
Date of Service September 17, 2021 Assessment & Plan (1) Sepsis: Plan: Uncertain source, no evidence of pneumonia, possible UTI although this may be contamination from the bag. He also has a Stage II sacral ulcer, so skin bacteria also a possibility vs adverse drug effect from the chemotherapy as infusion was 2 days prior to arrival. He is resuscitated and clinically feels improved. Will de-escalate cefepime to amoxicillin to cover the enterococcus and alpha strep growing in his urine. (2) UTI (urinary tract infection) due to Enterococcus: Plan: Complicated UTI with sepsis on admission. Transition (3) Pancytopenia due to antineoplastic chemotherapy: Plan: Anemia likely 2/2 recent chemotherapy and also possible occult GI blood loss with known mass that was radiated for bleeding one month ago. No overt bleeding is seen. Two units of blood given this admission and he remains anemic. Threshold to transfuse would be <7/21. Platelets were 143 on 09/12 per outpatient records. Thrombocytopenia is likely multifactorial including consumption from sepsis, recent chemotherapy and possibly dilution after fluid resuscitation. Cont to trend. Transfuse if <10K or if <20K if bleeding or fever present. No transfusion indicated at this time. (4) Sacral decubitus ulcer: Plan: +stage 2 sacral ulcer. no discharge wound nurse consult (5) Elevated LFTs: Plan: AST/ALT improved with treatment overnight. Outside of new kidney stones in his urine bag, not seeing any further reason to image him at this time. He has no abdominal pain and is tolerating PO. Likely related to chemotherapy and this is improved. No abominal pain. No further workup at this time. (6) Bladder cancer: Plan: History of bladder cancer s/p cystoprostatectomy, ileal conduit Recent diagnosis of metastasis to liver, right kidney, abdominal lymph nodes 08/2021 started chemo and radiation however had to be held secondary to febrile illness Had gemcitabine 09/12/[address] Zulma Castro at [facility]. Plans to switch care locally with Dr Valenzuela (7) History of ileal conduit: (8) CKD (chronic kidney disease), stage III: Plan: Currently at baseline, avoid nephrotoxic agents and renally dose meds as able. (9) CAD (coronary artery disease): Plan: chronic, stable S/P stent in past. Denies CP. Cont medical management with statin, isosorbide (10) HTN (hypertension): Plan: Hold amlodipine as was hypotensive in ER (11) DVT prophylaxis: Plan: SCDs, chemoprophylaxis is contraindicated. Full Dispo-pending clinical improvement and culture results. I spoke with her daughter, Lilo, regarding his care plan. Luli Malave DO [facility] Hospitalist Admission and Anticipated Discharge Date Admission Date: September 15, 2021 Subjective 71 yo M with bladder cancer with metastatic disease presents 2 days after gemcitabine (cisplatin was the week prior). Denies respiratory symptoms, chronic SOB not much worse than his recent baseline in last 6 months, denied any urinary symptoms or blood into his bag, however, he does notice that he is passing some kidney stones here. He has had these before and is not having any pain from this. Received 2 units of blood--still anemic. Patient is reporting lightheadedness with standing. Has a h/o radiation to bowels last month for some rectal bleeding from a metastatic mass, but reports stool has appeared unchanged in recent weeks. Today denies any symptoms. tolerating PO, denies CP, SOB, abdominal pain, fevers, chills. Reviewed studies and care plan wtih his daughter, who is a physician, at bedside. Review of Systems Review of Systems: All systems were reviewed and negative except as indicated above. Physical Exam Physical Exam: CONSTITUTIONAL: WNWD, vitals as above, NAD EYES: normal conjunctivae, no scleral icterus, no fundoscopic abnormality ENT: external ear and nose normal, oropharynx clear, NECK: trachea midline, RESPIRATORY: clear to auscultation bilaterally, no crackles, rales or wheezes, normal respiratory effort CARDIOVASCULAR: regular rate and rhythm, S1 and 2 heard without murmurs, gallops or rubs, no JVD, no peripheral edema CHEST: port accessed in anterior right chest GASTROINTESTINAL: soft, nontender, no guarding, ileal conduit draining into catheter bag with light yellow urine, no blood. MUSCULOSKELETAL: strength 5/5 throughout, head is normocephalic and atraumatic SKIN: warm and dry, NEUROLOGIC: No facial palsy, no dysarthria. CN 2-12 grossly intact, no sensory deficit, normal cognition, normal speech, no tremor PSYCHIATRIC: alert cooperative and oriented to person, place and time. Results & Data Results & Data ([facility]) Vital Signs (Past 12 Hours) Vital Signs Temp Pulse Pulse Resp BP Pulse Ox 09/17/21 12:05 36.7 C 98 H 22 126/67 98 09/17/21 11:48 86 09/17/21 07:53 37.1 C 89 20 124/73 98 09/17/21 04:00 37.0 C 83 18 117/68 96 Laboratory Results Short CBC 09/16/21 09/17/21 Range/Units 18:20 07:35 WBC 5.89 2.51 L (4.8-10.8) K/uL Hgb 7.7 L 7.4 L (14.0-18.0) g/dL Hct 23.5 L 23.1 L (42-52) % Plt Count 24 L* 15 L* (130-400) K/uL BMP 09/17/21 07:35 Sodium 137 Potassium 3.5 Chloride 114 H Carbon Dioxide 18 L BUN 36 H Creatinine 1.28 Glucose 80 Calcium 7.6 L Medications Administered Current Inpatient Medications Acetaminophen (Acetaminophen 325 Mg Tab) 650 mg PO Q4H PRN PRN Reason: Pain or Fever Stop: 10/15/21 15:15 Atorvastatin Calcium (Atorvastatin 40 Mg Tab) 80 mg PO [facility] Stop: 10/15/21 20:59 Last Admin: 09/16/21 21:13 Dose: 80 mg Documented by: Citalopram Hydrobromide (Citalopram 20 Mg Tab) 20 mg PO [facility] Stop: 10/15/21 20:59 Last Admin: 09/16/21 21:13 Dose: 20 mg Documented by: Docusate Sodium (Docusate Sodium 100 Mg Cap) 100 mg PO [facility] Stop: 10/16/21 08:59 Last Admin: 09/17/21 08:14 Dose: Not Given Documented by: Heparin Sodium (Porcine) (Heparin 100 Unit/Ml 5ml Flush) 5 ml FLUSH PRN PRN PRN Reason: Flush Stop: 10/16/21 01:56 Cefepime HCl 2,000 mg/ Syringe 20 mls @ 5 mls/min IV Q12 [facility]; Protocol Stop: 09/17/21 20:59 Last Admin: 09/17/21 08:20 Dose: 5 mls/min Documented by: Isosorbide Mononitrate (Isosorbide [place] Extended Rel 60 Mg Tabcr) 60 mg PO [facility] Stop: 10/16/21 08:59 Last Admin: 09/17/21 08:13 Dose: 60 mg Documented by: Lactobacillus Acidoph/Casei/Rhamnos (Advanced Probiotic 1250 Mg Capsule) 2 cap PO DAILY [facility] Stop: 10/16/21 08:59 Last Admin: 09/17/21 08:13 Dose: 2 cap Documented by: Mirtazapine (Mirtazapine Tab 15 Mg Tab) 7.5 mg PO HS [facility] Stop: 10/15/21 20:59 Last Admin: 09/16/21 21:13 Dose: 7.5 mg Documented by: Nitroglycerin (Nitroglycerin Sl 0.4 Mg/Tab Tab) 0.4 mg SL Q5M PRN PRN Reason: Chest Pain Stop: 10/15/21 15:15 Ondansetron HCl (Ondansetron Inj 2 Mg/Ml 2 Ml Vial) 4 mg IV Q6H PRN PRN Reason: Nausea Stop: 10/15/21 15:15 Polyethylene Glycol (Polyethylene (Miralax) 17 Gm Pack) 17 gm PO DAILY PRN PRN Reason: Constipation Stop: 10/15/21 15:15
[2021-09-17] MEDS ORDERED: SODIUM CHLORIDE 0.9% 1000ML 1,000 ML IV SCH (16:45)
[2021-09-17] MEDS: AMOXICILLIN 500 MG CAP PO SCH (19:28)
[2021-09-17] MEDS: MIRTAZAPINE TAB 15 MG TAB PO SCH (20:57)
[2021-09-17] MEDS: ATORVASTATIN 40 MG TAB PO SCH (20:58)
[2021-09-17] MEDS: CITALOPRAM 20 MG TAB PO SCH (20:58)
[2021-09-18] MEDS: HEPARIN 100 UNIT/ML 5ML FLUSH FLUSH PRN (01:29)
[2021-09-18] MEDS: AMOXICILLIN 500 MG CAP PO SCH ×3 (06:25→19:52)
[2021-09-18] MEDS: ADVANCED PROBIOTIC 1250 MG CAPSULE PO SCH (07:36)
[2021-09-18] MEDS: ISOSORBIDE MONO EXTENDED REL 60 MG TABCR PO SCH (07:36)
[2021-09-18] MEDS: DOCUSATE SODIUM 100 MG CAP PO SCH (07:37)
[2021-09-18 08:44] LABS: Mean Corpuscular Hgb Conc 32.3 g/dL (32-36); Platelet Count 10 K/uL (130-400)
[2021-09-18 08:45] LABS: Creatinine Clr Calc Pharmacy 53.9 ml/min; Echinocytes 1+; Eosinophils # (auto) 0.03 K/uL (0-0.5); Eosinophils % (auto) 2.4 %; Hemoglobin 7.1 g/dL (14.0-18.0); Immature Granulocytes # (auto) 0.01 K/uL (0.00-0.02); Immature Granulocytes % (auto) 0.8 %; Lymphocytes # (auto) 0.11 K/uL (1.2-3.4); Lymphocytes % (auto) 8.7 %; Magnesium 1.8 mg/dl (1.7-2.4); Mean Corpuscular Hemoglobin 26.9 pg (25-34); Mean Corpuscular Volume 83.3 fL (80-100); Monocytes # (auto) 0.02 K/uL (0.11-0.59); Monocytes % (auto) 1.6 %; Neutrophils # (auto) 1.09 K/uL (1.4-6.5); Neutrophils % (auto) 86.5 %; Platelet Estimate SIGNIFIC DECREASED (Normal); RDW Coefficient of Variation 18.6 % (11.5-14.5); RDW Standard Deviation 56.9 fL (36.4-46.3); Red Blood Count 2.64 M/uL (4.7-6.1); White Blood Count 1.26 K/uL (4.8-10.8)
--- NOTE | 2021-09-18 19:30 | Hospitalist Progress Note ---
Date of Service September 18, 2021 Assessment & Plan (1) Sepsis: Plan: Uncertain source, no evidence of pneumonia, possible UTI although this may be contamination from the bag. He also has a Stage II sacral ulcer, so skin bacteria also a possibility vs adverse drug effect from the chemotherapy as infusion was 2 days prior to arrival. He is resuscitated and clinically feels improved. Will de-escalate cefepime to amoxicillin to cover the enterococcus and alpha strep growing in his urine. (2) UTI (urinary tract infection) due to Enterococcus: Plan: Complicated UTI with sepsis on admission. cont amoxicillin. He is better overnight. (3) Pancytopenia due to antineoplastic chemotherapy: Plan: Anemia likely 2/2 recent chemotherapy and also possible occult GI blood loss with known mass that was radiated for bleeding one month ago. No overt bleeding is seen. Two units of blood given this admission and he remains anemic. Threshold to transfuse would be <7/21. Platelets were 143 on 09/12 per outpatient records. Thrombocytopenia is likely multifactorial including consumption from sepsis, recent chemotherapy and possibly dilution after fluid resuscitation. Cont to trend. Transfuse if <10K or if <20K if bleeding or fever present. No transfusion indicated at this time. (4) Sacral decubitus ulcer: Plan: +stage 2 sacral ulcer. no discharge wound nurse consult (5) Elevated LFTs: Plan: AST/ALT improved with treatment overnight. Outside of new kidney stones in his urine bag, not seeing any further reason to image him at this time. He has no abdominal pain and is tolerating PO. Likely related to chemotherapy and this is improved. No abominal pain. No further workup at this time. (6) Bladder cancer: Plan: History of bladder cancer s/p cystoprostatectomy, ileal conduit Recent diagnosis of metastasis to liver, right kidney, abdominal lymph nodes 08/2021 started chemo and radiation however had to be held secondary to febrile illness Had gemcitabine 09/12/[address] Zulma Castro at [facility]. Plans to switch care locally with Dr Valenzuela (7) History of ileal conduit: (8) CKD (chronic kidney disease), stage III: Plan: Currently at baseline, avoid nephrotoxic agents and renally dose meds as able. (9) CAD (coronary artery disease): Plan: chronic, stable S/P stent in past. Denies CP. Cont medical management with statin, isosorbide (10) HTN (hypertension): Plan: Hold amlodipine as was hypotensive in ER (11) DVT prophylaxis: Plan: SCDs, chemoprophylaxis is contraindicated. Full Dispo-to home in 1-2 days. DO Gonsalo Yanez Hospitalist Admission and Anticipated Discharge Date Admission Date: September 15, 2021 Subjective 71 yo M with bladder cancer with metastatic disease presents 2 days after gemcitabine (cisplatin was the week prior). Denies respiratory symptoms, chronic SOB not much worse than his recent baseline in last 6 months, denied any urinary symptoms or blood into his bag, however, he does notice that he is passing some kidney stones here. He has had these before and is not having any pain from this. Received 2 units of blood this admission. worsened pancytopenia but he feels improved tolerating food better today and appears in good spirits. Review of Systems Review of Systems: All systems were reviewed and negative except as indicated above. Physical Exam Physical Exam: CONSTITUTIONAL: WNWD, vitals as above, NAD EYES: normal conjunctivae, no scleral icterus, no fundoscopic abnormality ENT: external ear and nose normal, oropharynx clear, NECK: trachea midline, RESPIRATORY: clear to auscultation bilaterally, no crackles, rales or wheezes, normal respiratory effort CARDIOVASCULAR: regular rate and rhythm, S1 and 2 heard without murmurs, gallops or rubs, no JVD, no peripheral edema CHEST: port accessed in anterior right chest GASTROINTESTINAL: soft, nontender, no guarding, ileal conduit draining into catheter bag with light yellow urine, no blood. MUSCULOSKELETAL: strength 5/5 throughout, head is normocephalic and atraumatic SKIN: warm and dry, NEUROLOGIC: No facial palsy, no dysarthria. CN 2-12 grossly intact, no sensory deficit, normal cognition, normal speech, no tremor PSYCHIATRIC: alert cooperative and oriented to person, place and time. Results & Data Results & Data ([facility]) Vital Signs (Past 12 Hours) Vital Signs Temp Pulse Pulse Resp BP Pulse Ox 09/18/21 18:39 36.7 C 86 20 121/66 97 09/18/21 15:15 88 09/18/21 15:12 36.7 C 85 20 115/65 98 09/18/21 11:16 37.0 C 91 H 20 105/65 97 09/18/21 08:00 36.5 C 82 20 128/70 97 Laboratory Results Short CBC 09/18/21 Range/Units 07:42 WBC 1.26 L (4.8-10.8) K/uL Hgb 7.1 L (14.0-18.0) g/dL Hct 22.0 L (42-52) % Plt Count 10 L* (130-400) K/uL BMP 09/18/21 07:42 Creatinine 1.42 H Medications Administered Current Inpatient Medications Acetaminophen (Acetaminophen 325 Mg Tab) 650 mg PO Q4H PRN PRN Reason: Pain or Fever Stop: 10/15/21 15:15 Amoxicillin (Amoxicillin 500 Mg Cap) 500 mg PO Q8 [facility]; Protocol Stop: 09/22/21 17:59 Last Admin: 09/18/21 11:07 Dose: 500 mg Documented by: Atorvastatin Calcium (Atorvastatin 40 Mg Tab) 80 mg PO HS [facility] Stop: 10/15/21 20:59 Last Admin: 09/17/21 20:58 Dose: 80 mg Documented by: Citalopram Hydrobromide (Citalopram 20 Mg Tab) 20 mg PO [facility] Stop: 10/15/21 20:59 Last Admin: 09/17/21 20:58 Dose: 20 mg Documented by: Docusate Sodium (Docusate Sodium 100 Mg Cap) 100 mg PO QAM [facility] Stop: 10/16/21 08:59 Last Admin: 09/18/21 07:37 Dose: Not Given Documented by: Heparin Sodium (Porcine) (Heparin 100 Unit/Ml 5ml Flush) 5 ml FLUSH PRN PRN PRN Reason: Flush Stop: 10/16/21 01:56 Last Admin: 09/18/21 01:29 Dose: 5 ml Documented by: Isosorbide Mononitrate (Isosorbide [place] Extended Rel 60 Mg Tabcr) 60 mg PO QAM [facility] Stop: 10/16/21 08:59 Last Admin: 09/18/21 07:36 Dose: 60 mg Documented by: Lactobacillus Acidoph/Casei/Rhamnos (Advanced Probiotic 1250 Mg Capsule) 2 cap PO DAILY [facility] Stop: 10/16/21 08:59 Last Admin: 09/18/21 07:36 Dose: 2 cap Documented by: Mirtazapine (Mirtazapine Tab 15 Mg Tab) 7.5 mg PO HS [facility] Stop: 10/15/21 20:59 Last Admin: 09/17/21 20:57 Dose: 7.5 mg Documented by: Nitroglycerin (Nitroglycerin Sl 0.4 Mg/Tab Tab) 0.4 mg SL Q5M PRN PRN Reason: Chest Pain Stop: 10/15/21 15:15 Ondansetron HCl (Ondansetron Inj 2 Mg/Ml 2 Ml Vial) 4 mg IV Q6H PRN PRN Reason: Nausea Stop: 10/15/21 15:15 Polyethylene Glycol (Polyethylene (Miralax) 17 Gm Pack) 17 gm PO DAILY PRN PRN Reason: Constipation Stop: 10/15/21 15:15
[2021-09-18] MEDS: MIRTAZAPINE TAB 15 MG TAB PO SCH (19:51)
[2021-09-18] MEDS: CITALOPRAM 20 MG TAB PO SCH (19:51)
[2021-09-18] MEDS: ATORVASTATIN 40 MG TAB PO SCH (19:52)
[2021-09-18 23:44] LABS: Adenovirus F 40/41 PCR Not Detected (NotDetected); Astrovirus PCR Not Detected (NotDetected); Campylobacter PCR Not Detected (NotDetected); Clostridium diff Toxin A/B PCR Not Detected (NotDetected); Cryptosporidium PCR Not Detected (NotDetected); Cyclospora cayetanensis PCR Not Detected (NotDetected); Entamoeba histolytica PCR Not Detected (NotDetected); Enteroaggregative E.coli(EAEC) Not Detected (NotDetected); Enteropathogenic E.coli (EPEC) Not Detected (NotDetected); Enterotoxigenic E.coli (ETEC) Not Detected (NotDetected); Giardia lamblia PCR Not Detected (NotDetected); Norovirus GI/GII PCR Not Detected (NotDetected); Plesiomonas shigelloides PCR Not Detected (NotDetected); Rotavirus A PCR Not Detected (NotDetected); Salmonella PCR Not Detected (NotDetected); Sapovirus PCR Not Detected (NotDetected); Shiga-like Toxin E.coli (STEC) Not Detected (NotDetected); Shigella/Enteroinvasive E.coli Not Detected (NotDetected); Vibrio cholerae PCR Not Detected (NotDetected); Vibrio species PCR Not Detected (NotDetected); Yersinia enterocolitica PCR Not Detected (NotDetected)
[2021-09-19] MEDS: AMOXICILLIN 500 MG CAP PO SCH ×3 (06:00→20:28)
[2021-09-19 06:35] LABS: BUN Creatinine Ratio 24.8 (10-20); Calcium 8.2 mg/dl (8.5-10.1); Est GFR (Non-African American) 45.7 ml/min; Potassium 3.4 mmol/L (3.5-5.1)
[2021-09-19 06:38] LABS: Platelet Count 7 K/uL (130-400)
[2021-09-19] MEDS ORDERED: SODIUM CHLORIDE 0.9% 250 ML IV PRN ×3 (06:43→17:28)
[2021-09-19 06:46] LABS: Hematocrit (blood only) 21.4 % (42-52); Hemoglobin 6.7 g/dL (14.0-18.0); Mean Corpuscular Hemoglobin 26.5 pg (25-34); Mean Corpuscular Volume 84.6 fL (80-100); RDW Coefficient of Variation 18.8 % (11.5-14.5); RDW Standard Deviation 58.9 fL (36.4-46.3); Red Blood Count 2.53 M/uL (4.7-6.1); White Blood Count 1.32 K/uL (4.8-10.8)
[2021-09-19 06:48] LABS: Basophils # (auto) 0.01 K/uL (0-0.2); Basophils % (auto) 0.8 %; Dohle Bodies 1+; Echinocytes 1+; Eosinophils # (auto) 0.06 K/uL (0-0.5); Eosinophils % (auto) 4.5 %; Immature Granulocytes # (auto) 0.04 K/uL (0.00-0.02); Lymphocytes # (auto) 0.13 K/uL (1.2-3.4); Lymphocytes % (auto) 9.8 %; Mean Corpuscular Hgb Conc 31.3 g/dL (32-36); Monocytes # (auto) 0.01 K/uL (0.11-0.59); Monocytes % (auto) 0.8 %; Neutrophils # (auto) 1.07 K/uL (1.4-6.5); Neutrophils % (auto) 81.1 %; Ovalocytes 1+; Platelet Estimate SIGNIFIC DECREASED (Normal); Toxic Granulation 1+
[2021-09-19] MEDS: ADVANCED PROBIOTIC 1250 MG CAPSULE PO SCH (08:29)
[2021-09-19] MEDS: DOCUSATE SODIUM 100 MG CAP PO SCH (08:29)
[2021-09-19] MEDS: ISOSORBIDE MONO EXTENDED REL 60 MG TABCR PO SCH (08:29)
[2021-09-19] MEDS ORDERED: ACETAMINOPHEN 325 MG TAB PO ONE ×2 (10:13→17:26)
[2021-09-19] MEDS ORDERED: diphenhydrAMINE Capsule 25 MG CAP PO ONE ×2 (10:13→17:26)
[2021-09-19] MEDS ORDERED: POTASSIUM CHLORIDE CRTAB 20 MEQ TABCR PO STA (10:13)
[2021-09-19] MEDS: HEPARIN 100 UNIT/ML 5ML FLUSH FLUSH PRN (14:51)
--- NOTE | 2021-09-19 15:12 | Hospitalist Progress Note ---
Date of Service September 19, 2021 Assessment & Plan (1) Sepsis: Plan: Uncertain source, no evidence of pneumonia, possible UTI although this may be contamination from the bag. He also has a Stage II sacral ulcer, so skin bacteria also a possibility vs adverse drug effect from the chemotherapy as infusion was 2 days prior to arrival. He is resuscitated and clinically feels improved. Cont amoxicillin to cover the enterococcus and alpha strep that was found in his urine. (2) UTI (urinary tract infection) due to Enterococcus: Plan: Complicated UTI with sepsis on admission. cont amoxicillin. Some gross hematuria present with no abdominal pain. This is likely related to malignancy and very low platelet count even causing some spontaneous bleeding. CT a/p imaging ordered with expected abnormalities from known metastatic disease. Did consult urology but will cancel and defer to outpatient setting if this persists after platelet count returns back to normal. Noted that there will be some chronic hydronephrosis expected with any ileal conduit per my conversation with [employer] officer urologist today. (3) Pancytopenia due to antineoplastic chemotherapy: Plan: Anemia likely 2/2 recent chemotherapy and also possible occult GI blood loss with known mass that was radiated for bleeding one month ago. No overt bleeding is seen. Two units of blood given this admission and he remains anemic. Threshold to transfuse would be <7/21. Platelets were 143 on 09/12 per outpatient records. Thrombocytopenia is likely multifactorial including consumption from sepsis, recent chemotherapy and possibly dilution after fluid resuscitation. Cont to trend. Transfuse if <10K or if <20K if bleeding or fever present. 09/19: required 2 units blood, 1 plt --repeat CBC in am. (4) Sacral decubitus ulcer: Plan: +stage 2 sacral ulcer. no discharge wound nurse consult, stay off the area and monitor in outpatient wound clinic. (5) Elevated LFTs: Plan: AST/ALT improved with treatment overnight. Outside of new kidney stones in his urine bag, not seeing any further reason to image him at this time. He has no abdominal pain and is tolerating PO. Known metastatic disease to liver. Likely related to chemotherapy and this is improved. No abdominal pain. No further workup at this time. (6) Bladder cancer: Plan: History of bladder cancer s/p cystoprostatectomy, ileal conduit Recent diagnosis of metastasis to liver, right kidney, abdominal lymph nodes 08/2021 started chemo and radiation however had to be held secondary to febrile illness Had gemcitabine 09/12/[address] Zulma Castro at [facility]. Plans to switch care locally with Dr Valenzuela (7) History of ileal conduit: (8) CKD (chronic kidney disease), stage III: Plan: Currently at baseline, avoid nephrotoxic agents and renally dose meds as able. (9) CAD (coronary artery disease): Plan: chronic, stable S/P stent in past. Denies CP. Cont medical management with statin, isosorbide (10) HTN (hypertension): Plan: Hold amlodipine as was hypotensive in ER (11) DVT prophylaxis: Plan: SCDs, chemoprophylaxis is contraindicated. Full Dispo-to home in am if cell lines are improved. Luli Malave [facility] and [facility]ticipated Discharge Date Admission Date: September 15, 2021 Subjective 71 yo M with bladder cancer with metastatic disease presents 2 days after gemcitabine (cisplatin was the week prior). Denies respiratory symptoms, chronic SOB not much worse than his recent baseline in last 6 months, denied any urinary symptoms or blood into his bag, however, he does notice that he is passing some kidney stones here. He has had these before and is not having any pain from this. Received 2 units of blood this admission. 1 u blood and 1 u plt this am pt feeling ok poor appetite but tolerating PO afebrile gross hematuria in welsh Review of Systems Review of Systems: All systems were reviewed and negative except as indicated above. Physical Exam Physical Exam: CONSTITUTIONAL: WNWD, vitals as above, NAD EYES: normal conjunctivae, no scleral icterus, no fundoscopic abnormality ENT: external ear and nose normal, oropharynx clear, NECK: trachea midline, RESPIRATORY: clear to auscultation bilaterally, no crackles, rales or wheezes, normal respiratory effort CARDIOVASCULAR: regular rate and rhythm, S1 and 2 heard without murmurs, gallops or rubs, no JVD, no peripheral edema CHEST: port accessed in anterior right chest GASTROINTESTINAL: soft, nontender, no guarding, ileal conduit draining into catheter bag with light yellow urine, +gross hematuria present in tubing MUSCULOSKELETAL: strength 5/5 throughout, head is normocephalic and atraumatic SKIN: warm and dry, NEUROLOGIC: No facial palsy, no dysarthria. CN 2-12 grossly intact, no sensory deficit, normal cognition, normal speech, no tremor PSYCHIATRIC: alert cooperative and oriented to person, place and time. Results & Data Results & Data ([facility]) Vital Signs (Past 12 Hours) Vital Signs Temp Pulse Pulse Resp BP BP BP 09/19/21 14:27 36.3 C L 83 18 105/62 09/19/21 13:45 36.4 C L 79 18 118/63 09/19/21 12:45 36.3 C L 80 18 111/60 09/19/21 11:45 36.7 C 81 18 123/62 09/19/21 11:15 36.6 C 83 18 107/54 L 09/19/21 11:00 36.8 C 83 18 114/51 L 09/19/21 10:44 36.7 C 83 18 111/62 09/19/21 10:22 36.8 C 83 20 114/51 L 09/19/21 10:20 36.6 C 86 18 108/63 09/19/21 09:20 36.2 C L 88 18 101/62 09/19/21 08:50 36.4 C L 98 H 20 103/63 09/19/21 08:35 36.5 C 101 H 20 108/63 09/19/21 08:19 36.5 C 85 16 109/56 L 09/19/21 08:01 36.6 C 86 20 126/71 09/19/21 07:37 85 09/19/21 03:31 36.8 C 88 18 121/69 Pulse Ox 09/19/21 14:27 98 09/19/21 13:45 98 09/19/21 12:45 97 09/19/21 11:45 97 09/19/21 11:15 97 09/19/21 11:00 97 09/19/21 10:44 97 09/19/21 10:22 97 09/19/21 10:20 96 09/19/21 09:20 98 09/19/21 08:50 96 09/19/21 08:35 95 09/19/21 08:19 96 09/19/21 08:01 97 09/19/21 07:37 09/19/21 03:31 97 Laboratory Results Short CBC 09/19/21 Range/Units 05:27 WBC 1.32 L (4.8-10.8) K/uL Hgb 6.7 L* (14.0-18.0) g/dL Hct 21.4 L (42-52) % Plt Count 7 L* (130-400) K/uL [facility] 09/19/21 05:27 Sodium 136 Potassium 3.4 L Chloride 114 H Carbon Dioxide 18 L BUN 38 H Creatinine 1.53 H Glucose 88 Calcium 8.2 L Medications Administered Current Inpatient Medications Acetaminophen (Acetaminophen 325 Mg Tab) 650 mg PO Q4H PRN PRN Reason: Pain or Fever Stop: 10/15/21 15:15 Acetaminophen (Acetaminophen 325 Mg Tab) 650 mg PO PRE-TREAT ONE Stop: 09/19/21 18:13 Last Admin: 09/19/21 10:31 Dose: 650 mg Documented by: Amoxicillin (Amoxicillin 500 Mg Cap) 500 mg PO Q8 [facility]; Protocol Stop: 09/22/21 17:59 Last Admin: 09/19/21 14:51 Dose: 500 mg Documented by: Atorvastatin Calcium (Atorvastatin 40 Mg Tab) 80 mg PO [facility] Stop: 10/15/21 20:59 Last Admin: 09/18/21 19:52 Dose: 80 mg Documented by: Citalopram Hydrobromide (Citalopram 20 Mg Tab) 20 mg PO [facility] Stop: 10/15/21 20:59 Last Admin: 09/18/21 19:51 Dose: 20 mg Documented by: Diphenhydramine HCl (Diphenhydramine Capsule 25 Mg Cap) 25 mg PO PRE-TREAT ONE Stop: 09/19/21 18:13 Last Admin: 09/19/21 10:31 Dose: 25 mg Documented by: Docusate Sodium (Docusate Sodium 100 Mg Cap) 100 mg PO [facility] Stop: 10/16/21 08:59 Last Admin: 09/19/21 08:29 Dose: Not Given Documented by: Heparin Sodium (Porcine) (Heparin 100 Unit/Ml 5ml Flush) 5 ml FLUSH PRN PRN PRN Reason: Flush Stop: 10/16/21 01:56 Last Admin: 09/19/21 14:51 Dose: 5 ml Documented by: Isosorbide Mononitrate (Isosorbide [place] Extended Rel 60 Mg Tabcr) 60 mg PO [facility] Stop: 10/16/21 08:59 Last Admin: 09/19/21 08:29 Dose: 60 mg Documented by: Lactobacillus Acidoph/Casei/Rhamnos (Advanced Probiotic 1250 Mg Capsule) 2 cap PO DAILY [facility] Stop: 10/16/21 08:59 Last Admin: 09/19/21 08:29 Dose: 2 cap Documented by: Mirtazapine (Mirtazapine Tab 15 Mg Tab) 7.5 mg PO HS ALEX Stop: 10/15/21 20:59 Last Admin: 09/18/21 19:51 Dose: 7.5 mg Documented by: Nitroglycerin (Nitroglycerin Sl 0.4 Mg/Tab Tab) 0.4 mg SL Q5M PRN PRN Reason: Chest Pain Stop: 10/15/21 15:15 Ondansetron HCl (Ondansetron Inj 2 Mg/Ml 2 Ml Vial) 4 mg IV Q6H PRN PRN Reason: Nausea Stop: 10/15/21 15:15 Polyethylene Glycol (Polyethylene (Miralax) 17 Gm Pack) 17 gm PO DAILY PRN PRN Reason: Constipation Stop: 10/15/21 15:15
[2021-09-19 16:55] LABS: Dohle Bodies 1+; Echinocytes 1+; Hematocrit (blood only) 21.4 % (42-52); Hemoglobin 6.9 g/dL (14.0-18.0); Mean Corpuscular Hemoglobin 26.7 pg (25-34); Mean Corpuscular Hgb Conc 32.2 g/dL (32-36); Mean Corpuscular Volume 82.9 fL (80-100); Ovalocytes 1+; Platelet Count 15 K/uL (130-400); Platelet Estimate SIGNIFIC DECREASED (Normal); RDW Coefficient of Variation 17.8 % (11.5-14.5); RDW Standard Deviation 53.8 fL (36.4-46.3); Red Blood Count 2.58 M/uL (4.7-6.1); Toxic Granulation 1+; White Blood Count 1.41 K/uL (4.8-10.8)
[2021-09-19 16:59] LABS: ALC (manual) 0.23 K/uL (1.2-3.4); ANC (manual) 1.16 K/uL (1.4-6.5); Basophils # (manual) 0.01 K/uL (0-0.2); Eosinophils # (manual) 0.01 K/uL (0-0.5); Lymphocytes # (manual) 0.23 K/uL (1.2-3.4); Neutrophils # (manual) 1.16 K/uL (1.4-6.5)
[2021-09-19] MEDS ORDERED: diphenhydrAMINE HCl 12.5 MG/5 ML UDC PO ONE (18:10)
[2021-09-19] MEDS: MIRTAZAPINE TAB 15 MG TAB PO SCH (20:27)
[2021-09-19] MEDS: CITALOPRAM 20 MG TAB PO SCH (20:27)
[2021-09-19] MEDS: ATORVASTATIN 40 MG TAB PO SCH (20:28)
--- NOTE | 2021-09-19 20:47 | CT Scan Report ---
ABDOMEN AND PELVIS CT WITHOUT CONTRAST CT DOSE: 737.83 mGy.cm HISTORY: gross hematuria, stones in ileal conduit, no pain TECHNIQUE: Multiaxial CT images of the abdomen and pelvis were performed without contrast. A dose lo wering technique was utilized adhering to the principles of ALARA. COMPARISON STUDY: None. FINDINGS: A few punctate calcified granulomas within the lung bases. Patchy densities within the righ t lower lobe posteriorly may represent dependent change or a low-grade pneumonitis. A 3 mm subpleural nodule within the right lower lobe on image 20. A 7 mm subpleural nodule within the left lower lobe on image 79. A few additional tiny nodular densities within the lung bases are also noted. These are partially obscured by the motion artifact. No pneumoperitoneum. No pneumatosis. Bilateral L5 spondylo lysis. There is a destructive lesion within the right lateral 6 rib. This is consistent with a metast atic focus. Partially visualized lytic lesions within the sternum and left anterior fourth rib which may also represent metastatic foci. Trace anterior pericardial effusion. There is also trace right pl eural effusion. Innumerable hypodense lesions seen scattered throughout the liver consistent with met astatic disease. There is mild periportal edema. The unenhanced spleen and pancreas are unremarkable. Multiple left renal calculi. No left-sided hydronephrosis. There is a 1 cm heterogeneous nodule with in the left adrenal gland and a 5.2 cm heterogeneous mass within the right adrenal gland. These are c onsistent with metastatic foci. There is necrotic retroperitoneal, periportal, and right mesenteric l ymphadenopathy consistent with sinus disease. There are few scattered peritoneal/perinephric nodules within the right side of the abdomen consistent with metastatic foci. Dominant right peritoneal nodul e on image 296 measures 2.2 cm. The right kidney is diffusely enlarged and heterogeneous. This likely represents near complete replacement of the right kidney with a heterogeneous mass. Infectious proce ss is considered less likely but not entirely excluded. Trace ascites is noted.. This likely extends into the right renal vein and may extend into the IVC. Surgical clips within the pelvis consistent wi th prior lymph node dissection. Postoperative changes consistent with prior process a cystectomy with an ileal loop diversion. No right-sided hydronephrosis. Normal caliber abdominal aorta. Mild body wa ll edema. Suboptimal evaluation for bowel pathology due to the lack of intravenous and oral contrast. However, there is no evidence for bowel obstruction. Questionable mild focal thickening within the m id sigmoid colon best seen on image 383. This could represent a mild focal colitis. Focal soft tissue density within the right pelvic sidewall with surrounding surgical clips best seen image 361. This m easures approximately 3.2 cm and is concerning for a metastatic focus. IMPRESSION: 1. The right kidney is diffusely enlarged and heterogeneous. This likely represents near complete rep lacement of the right kidney with a heterogeneous mass consistent with a renal cell carcinoma. There is also suggestion of tumor extension within the right renal vein and possible IVC. 2. Extensive metastatic disease seen throughout the abdomen and pelvis as described above including i nnumerable hepatic metastases. This is concerning for metastatic renal cell carcinoma given the appea antoinette of the right kidney. 3. Left-sided nephrolithiasis. No hydronephrosis. 4. Postoperative changes as described above. 5. Osseous metastatic disease seen within the ribs and sternum. 6. A few small nodules within the lung bases. These are indeterminate but could represent metastatic disease. This bears watching on future examinations. 7. Trace ascites. 8. Additional findings as described above. ACT 112: Negative or not required by law. Electronically signed by: Javier Escalera M.D. 09/19/2021 8:45 PM
[2021-09-20] MEDS: AMOXICILLIN 500 MG CAP PO SCH ×3 (05:46→21:28)
[2021-09-20 06:14] LABS: BUN Creatinine Ratio 25.2 (10-20); Calcium 8.3 mg/dl (8.5-10.1); Creatinine Clr Calc Pharmacy 52.1 ml/min; Est GFR (African American) 55.6 ml/min; Potassium 3.8 mmol/L (3.5-5.1)
[2021-09-20 06:36] LABS: Mean Corpuscular Hemoglobin 27.3 pg (25-34); Mean Corpuscular Hgb Conc 33.3 g/dL (32-36); Mean Corpuscular Volume 81.9 fL (80-100); Platelet Count 13 K/uL (130-400); RDW Coefficient of Variation 17.5 % (11.5-14.5); RDW Standard Deviation 53.1 fL (36.4-46.3); Red Blood Count 2.93 M/uL (4.7-6.1); White Blood Count 1.28 K/uL (4.8-10.8)
[2021-09-20 06:38] LABS: ALC (manual) 0.06 K/uL (1.2-3.4); ANC (manual) 1.13 K/uL (1.4-6.5); Acanthocytes 1+; Basophils # (manual) 0.02 K/uL (0-0.2); Basophils % (manual) 1.7 %; Dohle Bodies 2+; Eosinophils # (manual) 0.06 K/uL (0-0.5); Eosinophils % (manual) 4.3 %; Giant Platelets 1+; Lymphocytes # (manual) 0.06 K/uL (1.2-3.4); Lymphocytes % (manual) 4.3 %; Monocytes # (manual) 0.02 K/uL (0.11-0.59); Monocytes % (manual) 1.7 %; Neutrophils # (manual) 1.13 K/uL (1.4-6.5); Ovalocytes 1+; Platelet Estimate SIGNIFIC DECREASED (Normal)
[2021-09-20] MEDS: ADVANCED PROBIOTIC 1250 MG CAPSULE PO SCH (07:30)
[2021-09-20] MEDS: DOCUSATE SODIUM 100 MG CAP PO SCH (07:30)
[2021-09-20] MEDS: ISOSORBIDE MONO EXTENDED REL 60 MG TABCR PO SCH (07:30)
--- NOTE | 2021-09-20 14:01 | Hospitalist Progress Note ---
Date of Service September 20, 2021 Assessment & Plan (1) Sepsis: Plan: With UTI and possibly from stage II sacral ulcer, skin bacteria also a possibility vs adverse drug effect from the chemotherapy as infusion was 2 days prior to arrival. Cont amoxicillin to cover the enterococcus and alpha strep that was found in his urine. (2) UTI (urinary tract infection) due to Enterococcus: Plan: Complicated UTI with sepsis on admission. cont amoxicillin. Some gross hematuria present with no abdominal pain. This is likely related to malignancy and very low platelet count even causing some spontaneous bleeding. CT a/p imaging ordered with expected abnormalities from known metastatic disease. Urology outpatient setting if this persists after platelet count returns back to normal. Noted that there will be some chronic hydronephrosis expected. (3) Pancytopenia due to antineoplastic chemotherapy: Plan: Anemia likely 2/2 recent chemotherapy and also possible occult GI blood loss with known mass that was radiated for bleeding one month ago. No overt bleeding is seen. Two units of blood given this admission and he remains anemic. Threshold to transfuse would be <7/21. Platelets were 143 on 09/12 per outpatient records. Thrombocytopenia is likely multifactorial including consumption from sepsis, recent chemotherapy and possibly dilution after fluid resuscitation. Cont to trend. Transfuse if <10K or if <20K if bleeding or fever present. 09/19: required 2 units blood, 1 plt --repeat CBC in am. (4) Sacral decubitus ulcer: Plan: +stage 2 sacral ulcer. no discharge wound nurse, stay off the area and monitor in outpatient wound clinic. (5) Elevated LFTs: Plan: AST/ALT improved. Outside of new kidney stones in his urine bag, not seeing any further reason to image him at this time. He has no abdominal pain and is tolerating PO. Known metastatic disease to liver. Likely related to chemotherapy and this is improved. No abdominal pain. No further workup at thi s time. (6) Bladder cancer: Plan: History of bladder cancer s/p cystoprostatectomy, ileal conduit Recent diagnosis of metastasis to liver, right kidney, abdominal lymph nodes 08/2021 started chemo and radiation however had to be held secondary to febrile illness Had gemcitabine 09/12/[address] Zulma Castro at [facility]. Plans to switch care locally with Dr Nicolas KISER-No Headache, No Visual Changes, No Nausea, No Vomiting, No Fever, No Chills, No Neck Pain or Stiffness, No Chest Pain, No Palpitations, No SOB, No SALAZAR, No Cough, No Sputum, No Wheezing, No Abdominal Pain, No Diarrhea, No Hematemesis, No Hemoptysis, No Unexpected Weight Loss, No Flank pain, No Melena, No Hematochezia, No Frequency, No Urgency, No Burning, No Hematuria, No Rashes, No Diaphoresis. Appetite is poor secondary to poor taste from chemo Physical Exam Gen-AAO x 3, NAD, Afebrile, pleasant Head-NCAT, EOMI, PERRLA, Anicteric Sclera, No Posterior Pharyngeal Erythema Neck-Supple, No JVD, No Thyromegaly, No Masses, No LAD, No Bruits Lungs-Clear to Auscultation Bilaterally, No Rales, No Rhonchi, No Wheezing, No Crepitus Chest-No S4, +S1, +S2, No S3, No Murmurs, No Rubs, No Gallops, No Ectopy Abdomen-Soft, Bowel Sounds Present, Non Tender, Non Distended, No Hepatomegaly, No Splenomegaly, No Palpable Masses, No Rebound, No Rigidity, No Guarding, ileal conduit draining into catheter bag with light yellow urine Musculoskeletal-Full Range of Motion Bilaterally, No CVAT, sacral ulcer Extremities-No Cyanosis, No Clubbing, No Edema Nuero-Cranial Nerves II-XII grossly intact, Motor WNL, DTRs WNL, Strength WNL, Non Focal Psych-Normal Mood (7) History of ileal conduit: (8) CKD (chronic kidney disease), stage III: Plan: Currently at baseline, avoid nephrotoxic agents and renally dose meds as able. (9) CAD (coronary artery disease): Plan: chronic, stable S/P stent in past. Denies CP. Cont medical management with statin, isosorbide (10) HTN (hypertension): Plan: Hold amlodipine as was hypotensive in ER (11) DVT prophylaxis: Plan: SCDs, chemoprophylaxis is contraindicated. Full Dispo-to home in am if cell lines are improved. [facility] Admission and Anticipated Discharge Date Admission Date: September 15, 2021 Subjective 71 yo M with bladder cancer with metastatic disease presents 2 days after gemcitabine (cisplatin was the week prior). Denies respiratory symptoms, chronic SOB not much worse than his recent baseline in last 6 months, denied any urinary symptoms or blood into his bag, however, he does notice that he is passing some kidney stones here. He has had these before and is not having any pain from this. Received 2 units of blood this admission. 1 u blood and 1 u plt given pt feeling ok poor appetite but tolerating PO afebrile gross hematuria in welsh He says the food sucks and everything tastes awful to him Results & Data Results & Data ([facility]) Vital Signs (Past 12 Hours) Vital Signs Temp Pulse Pulse Resp BP BP Pulse Ox 09/20/21 11:56 36.7 C 89 16 120/64 96 09/20/21 07:18 82 09/20/21 07:07 36.4 C L 84 18 122/70 96 09/20/21 03:07 36.7 C 80 18 119/66 97
[2021-09-20] MEDS: ONDANSETRON INJ 2 MG/ML 2 ML VIAL IV PRN (20:39)
[2021-09-20] MEDS: HEPARIN 100 UNIT/ML 5ML FLUSH FLUSH PRN (20:39)
[2021-09-20] MEDS: CITALOPRAM 20 MG TAB PO SCH (20:40)
[2021-09-20] MEDS: ATORVASTATIN 40 MG TAB PO SCH (20:40)
[2021-09-20] MEDS: MIRTAZAPINE TAB 15 MG TAB PO SCH (20:40)
[2021-09-21] MEDS: AMOXICILLIN 500 MG CAP PO SCH ×3 (06:18→20:13)
[2021-09-21 06:35] LABS: INR 1.2 (0.9-1.1); Prothrombin Time 12.4 Seconds (9.0-12.0)
[2021-09-21 06:59] LABS: Albumin Globulin Ratio 0.7 (0.9-2); Albumin Level 1.9 gm/dl (3.4-5.0); Bilirubin,Total 0.9 mg/dl (0.2-1.0); Calcium 8.1 mg/dl (8.5-10.1); Creatinine Clr Calc Pharmacy 55.9 ml/min; Est GFR (African American) 55.2 ml/min; Est GFR (Non-African American) 47.6 ml/min; Globulin 2.7 gm/dl (2.5-4.0); Potassium 3.9 mmol/L (3.5-5.1); Total Protein 4.6 gm/dl (6.0-8.3)
[2021-09-21 07:18] LABS: Hemoglobin 7.8 g/dL (14.0-18.0); Mean Corpuscular Hgb Conc 32.5 g/dL (32-36); Platelet Count 18 K/uL (130-400); RDW Coefficient of Variation 17.5 % (11.5-14.5); RDW Standard Deviation 53.3 fL (36.4-46.3); Red Blood Count 2.89 M/uL (4.7-6.1); White Blood Count 0.87 K/uL (4.8-10.8)
[2021-09-21] MEDS: ADVANCED PROBIOTIC 1250 MG CAPSULE PO SCH (07:19)
[2021-09-21] MEDS: ISOSORBIDE MONO EXTENDED REL 60 MG TABCR PO SCH (07:19)
[2021-09-21 07:20] LABS: Acanthocytes 1+; Dohle Bodies 1+; Echinocytes 1+; Ovalocytes 1+; Platelet Estimate SIGNIFIC DECREASED (Normal); Toxic Granulation 1+
[2021-09-21] MEDS: DOCUSATE SODIUM 100 MG CAP PO SCH (07:20)
[2021-09-21 07:36] LABS: ALC (manual) 0.16 K/uL (1.2-3.4); Basophils # (manual) 0.01 K/uL (0-0.2); Basophils % (manual) 1.3 %; Blast # (manual) 0.01 K/uL (0-0); Blast Cells % (manual) 1.3 %; Eosinophils # (manual) 0.03 K/uL (0-0.5); Eosinophils % (manual) 3.5 %; Lymphocytes # (manual) 0.16 K/uL (1.2-3.4); Monocytes # (manual) 0.07 K/uL (0.11-0.59); Monocytes % (manual) 7.5 %; Neutrophils % (manual) 68.4 %
--- NOTE | 2021-09-21 10:38 | Hospitalist Progress Note ---
Date of Service September 21, 2021 Assessment & Plan (1) Sepsis: Plan: With UTI and possibly from stage II sacral ulcer, skin bacteria also a possibility vs adverse drug effect from the chemotherapy as infusion was 2 days prior to arrival. Cont amoxicillin to cover the enterococcus and alpha strep that was found in his urine. (2) UTI (urinary tract infection) due to Enterococcus: Plan: Complicated UTI with sepsis on admission. cont amoxicillin. Some gross hematuria present with no abdominal pain. This is likely related to malignancy and very low platelet count even causing some spontaneous bleeding. CT a/p imaging ordered with expected abnormalities from known metastatic disease. Urology outpatient setting if this persists after platelet count returns back to normal. Noted that there will be some chronic hydronephrosis expected. (3) Pancytopenia due to antineoplastic chemotherapy: Plan: Anemia likely 2/2 recent chemotherapy and also possible occult GI blood loss with known mass that was radiated for bleeding one month ago. No overt bleeding is seen. Two units of blood given this admission and he remains anemic. Threshold to transfuse would be <7/21. Platelets were 143 on 09/12 per outpatient records. Thrombocytopenia is likely multifactorial including consumption from sepsis, recent chemotherapy and possibly dilution after fluid resuscitation. Cont to trend. Transfuse if <10K or if <20K if bleeding or fever present. 09/19: required 2 units blood, 1 plt (4) Sacral decubitus ulcer: Plan: +stage 2 sacral ulcer. no discharge wound nurse, stay off the area and monitor in outpatient wound clinic. (5) Elevated LFTs: Plan: AST/ALT improved. Outside of new kidney stones in his urine bag, not seeing any further reason to image him at this time. He has no abdominal pain and is tolerating PO. Known metastatic disease to liver. Likely related to chemotherapy and this is improved. No abdominal pain. No further workup at this time. (6) Bladder cancer: Plan: History of bladder cancer s/p cystoprostatectomy, ileal conduit Recent diagnosis of metastasis to liver, right kidney, abdominal lymph nodes 08/2021 started chemo and radiation however had to be held secondary to febrile illness Had gemcitabine 09/12/[address] Zulma Castro at [facility]. Plans to switch care locally with Dr Valenzuela Cell lines still too low for DC, Will go home c DTR on DC Dr Bella Nagy ROS-No Headache, No Visual Changes, No Nausea, No Vomiting, No Fever, No Chills, No Neck Pain or Stiffness, No Chest Pain, No Palpitations, No SOB, No SALAZAR, No Cough, No Sputum, No Wheezing, No Abdominal Pain, No Diarrhea, No Hematemesis, No Hemoptysis, No Unexpected Weight Loss, No Flank pain, No Melena, No Hematochezia, No Frequency, No Urgency, No Burning, No Hematuria, No Rashes, No Diaphoresis. Appetite is poor secondary to poor taste from chemo Physical Exam Gen-AAO x 3, NAD, Afebrile, pleasant Head-NCAT, EOMI, PERRLA, Anicteric Sclera, No Posterior Pharyngeal Erythema Neck-Supple, No JVD, No Thyromegaly, No Masses, No LAD, No Bruits Lungs-Clear to Auscultation Bilaterally, No Rales, No Rhonchi, No Wheezing, No Crepitus Chest-No S4, +S1, +S2, No S3, No Murmurs, No Rubs, No Gallops, No Ectopy Abdomen-Soft, Bowel Sounds Present, Non Tender, Non Distended, No Hepatomegaly, No Splenomegaly, No Palpable Masses, No Rebound, No Rigidity, No Guarding, ileal conduit draining into catheter bag with light yellow urine Musculoskeletal-Full Range of Motion Bilaterally, No CVAT, sacral ulcer Extremities-No Cyanosis, No Clubbing, No Edema Nuero-Cranial Nerves II-XII grossly intact, Motor WNL, DTRs WNL, Strength WNL, Non Focal Psych-Normal Mood (7) History of ileal conduit: (8) CKD (chronic kidney disease), stage III: Plan: Currently at baseline, avoid nephrotoxic agents and renally dose meds as able. (9) CAD (coronary artery disease): Plan: chronic, stable S/P stent in past. Denies CP. Cont medical management with statin, isosorbide (10) HTN (hypertension): Plan: Hold amlodipine as was hypotensive in ER (11) DVT prophylaxis: Plan: SCDs, chemoprophylaxis is contraindicated. Full Dispo-to home in am if cell lines are improved. Luli Malave DO [facility] Hospitalist Admission and Anticipated Discharge Date Admission Date: September 15, 2021 Subjective 71 yo M with bladder cancer with metastatic disease presents 2 days after gemcitabine (cisplatin was the week prior). Denies respiratory symptoms, chronic SOB not much worse than his recent baseline in last 6 months, denied any urinary symptoms or blood into his bag, however, he does notice that he is passing some kidney stones here. He has had these before and is not having any pain from this. Received 2 units of blood this admission. 1 u blood and 1 u plt given pt feeling ok poor appetite but tolerating PO afebrile Results & Data Results & Data ([facility]) Vital Signs (Past 12 Hours) Vital Signs Temp Pulse Pulse Resp BP Pulse Ox 09/21/21 07:28 36.8 C 90 20 115/69 94 09/21/21 07:05 90 09/21/21 03:14 36.6 C 89 18 131/74 96 09/20/21 23:20 97 H 09/20/21 23:18 36.9 C 98 H 18 116/69 96
[2021-09-21] MEDS: MIRTAZAPINE TAB 15 MG TAB PO SCH (20:12)
[2021-09-21] MEDS: CITALOPRAM 20 MG TAB PO SCH (20:12)
[2021-09-21] MEDS: ATORVASTATIN 40 MG TAB PO SCH (20:13)
[2021-09-21] MEDS: HEPARIN 100 UNIT/ML 5ML FLUSH FLUSH PRN ×2 (20:20→22:26)
[2021-09-21] MEDS: ONDANSETRON INJ 2 MG/ML 2 ML VIAL IV PRN (20:20)
[2021-09-21 22:47] LABS: Hemoglobin 8.4 g/dL (14.0-18.0); Mean Corpuscular Hemoglobin 26.6 pg (25-34); Mean Corpuscular Hgb Conc 32.3 g/dL (32-36); Mean Corpuscular Volume 82.3 fL (80-100); Mean Platelet Volume 11.2 fL (7.4-10.4); Platelet Count 45 K/uL (130-400); RDW Coefficient of Variation 17.3 % (11.5-14.5); RDW Standard Deviation 53.3 fL (36.4-46.3); Red Blood Count 3.16 M/uL (4.7-6.1); White Blood Count 0.86 K/uL (4.8-10.8)
[2021-09-21 23:05] LABS: Troponin I < 0.03 ng/ml (0-0.04)
[2021-09-21 23:08] LABS: Acanthocytes 1+; Dohle Bodies 1+; Ovalocytes 1+
[2021-09-21 23:09] LABS: ALC (manual) 0.22 K/uL (1.2-3.4); ANC (manual) 0.44 K/uL (1.4-6.5); Eosinophils # (manual) 0.06 K/uL (0-0.5); Eosinophils % (manual) 6.4 %; Lymphocytes # (manual) 0.22 K/uL (1.2-3.4); Lymphocytes % (manual) 25.5 %; Monocytes # (manual) 0.14 K/uL (0.11-0.59); Monocytes % (manual) 16.4 %; Neutrophils # (manual) 0.44 K/uL (1.4-6.5); Neutrophils % (manual) 51.7 %
[2021-09-21 23:20] LABS: Anion Gap 5 (3-11); BUN Creatinine Ratio 21.3 (10-20); Blood Urea Nitrogen 33 mg/dl (6-23); Calcium 8.5 mg/dl (8.5-10.1); Carbon Dioxide 19 mmol/L (21-32); Chloride 111 mmol/L (98-107); Creatinine Clr Calc Pharmacy 53.3 ml/min; Est GFR (African American) 52.2 ml/min; Glucose 94 mg/dl (70-99(Fasting)); Magnesium 1.9 mg/dl (1.7-2.4); Phosphorus 1.8 mg/dl (2.5-4.9); Sodium 135 mmol/L (136-145)
[2021-09-22] MEDS: AMOXICILLIN 500 MG CAP PO SCH ×2 (06:28→14:06)
[2021-09-22] MEDS ORDERED: SODIUM PHOSPHATE 3 MMOL/1 ML INFUSION IV STA (06:56)
[2021-09-22] MEDS ORDERED: SODIUM PHOSPHATE 21 MMOL in DEXTROSE 5% 500 ML IV ONE (07:30)
[2021-09-22] MEDS: DOCUSATE SODIUM 100 MG CAP PO SCH (08:08)
[2021-09-22] MEDS: ADVANCED PROBIOTIC 1250 MG CAPSULE PO SCH (08:09)
[2021-09-22] MEDS: ISOSORBIDE MONO EXTENDED REL 60 MG TABCR PO SCH (08:09)
[2021-09-22 09:28] LABS: Hematocrit (blood only) 25.4 % (42-52); Hemoglobin 8.6 g/dL (14.0-18.0); Mean Corpuscular Hemoglobin 27.7 pg (25-34); Mean Corpuscular Hgb Conc 33.9 g/dL (32-36); Mean Corpuscular Volume 81.9 fL (80-100); RDW Coefficient of Variation 17.5 % (11.5-14.5); RDW Standard Deviation 52.7 fL (36.4-46.3); White Blood Count 0.93 K/uL (4.8-10.8)
[2021-09-22 09:44] LABS: Albumin Globulin Ratio 0.7 (0.9-2); BUN Creatinine Ratio 22.7 (10-20); Bilirubin,Total 0.8 mg/dl (0.2-1.0); Calcium 8.3 mg/dl (8.5-10.1); Est GFR (African American) 54.3 ml/min; Est GFR (Non-African American) 46.8 ml/min; Globulin 2.8 gm/dl (2.5-4.0); Potassium 3.9 mmol/L (3.5-5.1); Total Protein 4.8 gm/dl (6.0-8.3)
[2021-09-22 09:50] LABS: Platelet Count 66 K/uL (130-400)
[2021-09-22 09:51] LABS: Platelet Estimate Decreased (Normal)
--- NOTE | 2021-09-22 11:50 | Hospitalist Progress Note ---
Date of Service September 22, 2021 Assessment & Plan (1) Sepsis: Plan: Uncertain source, no evidence of pneumonia, possible UTI although this may be contamination from the bag. He also has a Stage II sacral ulcer, so skin bacteria also a possibility vs adverse drug effect from the chemotherapy as infusion was 2 days prior to arrival. He is resuscitated and clinically feels improved. Cont amoxicillin to cover the enterococcus and alpha strep that was found in his urine. (2) UTI (urinary tract infection) due to Enterococcus: Plan: Complicated UTI with sepsis on admission. cont amoxicillin. Some gross hematuria present with no abdominal pain. This is likely related to malignancy and very low platelet count even causing some spontaneous bleeding. CT a/p imaging ordered with expected abnormalities from known metastatic disease. Did consult urology but will cancel and defer to outpatient setting if this persists after platelet count returns back to normal. Noted that there will be some chronic hydronephrosis expected with any ileal conduit per conversation with security operations manager urologist. (3) Pancytopenia due to antineoplastic chemotherapy: Plan: Anemia likely 2/2 recent chemotherapy and also possible occult GI blood loss with known mass that was radiated for bleeding one month ago. No overt bleeding is seen. Two units of blood given this admission and he remains anemic. Threshold to transfuse would be <7/21. Platelets were 143 on 09/12 per outpatient records. Thrombocytopenia is likely multifactorial including consumption from sepsis, recent chemotherapy and possibly dilution after fluid resuscitation. Cont to trend. Transfuse if <10K or if <20K if bleeding or fever present. 09/19: required 2 units blood, 1 plt. (4) Sacral decubitus ulcer: Plan: +stage 2 sacral ulcer. no discharge wound nurse consult, stay off the area and monitor in outpatient wound clinic. (5) Elevated LFTs: Plan: AST/ALT improved with treatment overnight. Outside of new kidney stones in his urine bag, not seeing any further reason to image him at this time. He has no abdominal pain and is tolerating PO. Known metastatic disease to liver. Likely related to chemotherapy and this is improved. No abdominal pain. No further workup at this time. (6) Bladder cancer: Plan: History of bladder cancer s/p cystoprostatectomy, ileal conduit Recent diagnosis of metastasis to liver, right kidney, abdominal lymph nodes 08/2021 started chemo and radiation however had to be held secondary to febrile illness Had gemcitabine 09/12/[address] Zulma Castro at [facility]. Plans to switch care locally with Dr Valenzuela (7) History of ileal conduit: (8) CKD (chronic kidney disease), stage III: Plan: Currently at baseline, avoid nephrotoxic agents and renally dose meds as able. (9) CAD (coronary artery disease): Plan: chronic, stable S/P stent in past. Denies CP. Cont medical management with statin, isosorbide (10) HTN (hypertension): Plan: Controlled (11) DVT prophylaxis: Plan: SCDs, chemoprophylaxis is contraindicated. Full code Dispo-to home in am if cell lines are improved. ROS-No Headache, No Visual Changes, No Nausea, No Vomiting, No Fever, No Chills, No Neck Pain or Stiffness, No Chest Pain, No Palpitations, No SOB, No SALAZAR, No Cough, No Sputum, No Wheezing, No Abdominal Pain, No Diarrhea, No Hematemesis, No Hemoptysis, No Unexpected Weight Loss, No Flank pain, No Melena, No Hematochezia, No Frequency, No Urgency, No Burning, No Hematuria, No Rashes, No Diaphoresis. Appetite is Normal Physical Exam Gen-AAO x 3, NAD, Afebrile Head-NCAT, EOMI, PERRLA, Anicteric Sclera, No Posterior Pharyngeal Erythema Neck-Supple, No JVD, No Thyromegaly, No Masses, No LAD, No Bruits Lungs-Clear to Auscultation Bilaterally, No Rales, No Rhonchi, No Wheezing, No Crepitus Chest-No S4, +S1, +S2, No S3, No Murmurs, No Rubs, No Gallops, No Ectopy Abdomen-Soft, Bowel Sounds Present, Non Tender, Non Distended, No Hepatomegaly, No Splenomegaly, No Palpable Masses, No Rebound, No Rigidity, No Guarding Musculoskeletal-Full Range of Motion Bilaterally, No CVAT Extremities-No Cyanosis, No Clubbing, No Edema Nuero-Cranial Nerves II-XII grossly intact, Motor WNL, DTRs WNL, Strength WNL, Non Focal Psych-Normal Mood Admission and Anticipated Discharge Date Admission Date: September 15, 2021 Subjective 71 yo M with bladder cancer with metastatic disease presents 2 days after gemcitabine (cisplatin was the week prior). Denies respiratory symptoms, chronic SOB not much worse than his recent baseline in last 6 months, denied any urinary symptoms or blood into his bag, however, he does notice that he is pas sing some kidney stones here. He has had these before and is not having any pain from this. Received 2 units of blood this admission. 1 u blood and 1 u plt given pt feeling ok better appetite tolerating PO afebrile Awaiting cell lines to improve Results & Data Results & Data ([facility]) Vital Signs (Past 12 Hours) Vital Signs Temp Pulse Resp BP Pulse Ox 09/22/21 11:43 36.8 C 86 20 110/66 97 09/22/21 06:00 36.7 C 88 18 127/75 96 09/22/21 03:13 36.8 C 90 18 127/70 95
[2021-09-22] MEDS: HEPARIN 100 UNIT/ML 5ML FLUSH FLUSH PRN ×2 (12:06→17:33)
[2021-09-22] MEDS: ONDANSETRON INJ 2 MG/ML 2 ML VIAL IV PRN (17:27)
[2021-09-22] MEDS ORDERED: bisacodyL 5 MG TABEC PO PRN ×2 (17:53→17:56)
[2021-09-22] MEDS ORDERED: bisacodyL 10 MG SUPP PR PRN (17:54)
[2021-09-22] MEDS: MIRTAZAPINE TAB 15 MG TAB PO SCH (20:10)
[2021-09-22] MEDS: CITALOPRAM 20 MG TAB PO SCH (20:10)
[2021-09-22] MEDS: ATORVASTATIN 40 MG TAB PO SCH (20:10)
[2021-09-23] MEDS: ADVANCED PROBIOTIC 1250 MG CAPSULE PO SCH (07:41)
[2021-09-23] MEDS: ISOSORBIDE MONO EXTENDED REL 60 MG TABCR PO SCH (07:41)
[2021-09-23] MEDS: HEPARIN 100 UNIT/ML 5ML FLUSH FLUSH PRN ×3 (07:45→13:47)
[2021-09-23 08:04] LABS: Nucleated RBC # (auto) 0.02 K/uL (0-0); Nucleated RBC % (auto) 1.7 %
[2021-09-23 08:05] LABS: Hematocrit (blood only) 24.7 % (42-52); Mean Corpuscular Hemoglobin 26.8 pg (25-34); Mean Corpuscular Hgb Conc 32.4 g/dL (32-36); Mean Corpuscular Volume 82.9 fL (80-100); Mean Platelet Volume 10.5 fL (7.4-10.4); Platelet Count 118 K/uL (130-400); RDW Coefficient of Variation 17.6 % (11.5-14.5); RDW Standard Deviation 53.7 fL (36.4-46.3); Red Blood Count 2.98 M/uL (4.7-6.1); White Blood Count 1.16 K/uL (4.8-10.8)
[2021-09-23 08:24] LABS: Albumin Globulin Ratio 0.6 (0.9-2); Albumin Level 1.9 gm/dl (3.4-5.0); BUN Creatinine Ratio 21.1 (10-20); Bilirubin,Total 0.7 mg/dl (0.2-1.0); Calcium 8.3 mg/dl (8.5-10.1); Creatinine Clr Calc Pharmacy 50.3 ml/min; Est GFR (African American) 53.4 ml/min; Est GFR (Non-African American) 46.1 ml/min; Potassium 3.7 mmol/L (3.5-5.1); Total Protein 4.9 gm/dl (6.0-8.3)
[2021-09-23 09:19] LABS: Acanthocytes 1+; Basophils # (manual) 0.01 K/uL (0-0.2); Basophils % (manual) 0.9 %; Dohle Bodies 1+; Eosinophils # (manual) 0.09 K/uL (0-0.5); Lymphocytes % (manual) 25.7 %; Monocytes # (manual) 0.44 K/uL (0.11-0.59); Monocytes % (manual) 37.9 %; Myelocytes # (manual) 0.02 K/uL (0-0); Myelocytes % (manual) 1.8 %; Neutrophils % (manual) 25.7 %; Ovalocytes 1+
--- NOTE | 2021-09-23 09:39 | Discharge Summary ---
Date of Service September 23, 2021 Admission HPI Per Admitting Provider Patient is 71 y/o M with PMH CAD s/p stent, HTN, dyslipidemia, CKD III-IV, chronic anemia, bladder cancer with metastasis to liver, kidney, lymph nodes s/p cystoprostatectomy and ileal conduit, currently undergoing chemo presented to ER with complaint of fever. Reports this morning with temperature of 101.2F. Reports feels rundown and has slight nausea. Denies abdominal pain. Patient reports chronic exertional shortness of breath and feels this is at baseline. He reports no decreased amount of urine output or change in coloration or hematuria. Patient reports chronic constipation. Did have BM this morning which was formed. Denies melena or hematochezia. Takes Metamucil. Denies diaphoresis, vomiting, diarrhea, PHILLIPS, dizziness, syncope, vision changes, neck pain, CP, orthopnea, palpitations, cough, sore throat, choking, otalgia, rhinorrhea, abdominal pain, paresthesias, extremity weakness, extremity edema, rashes. Following with hematology/oncology at [facility] - Dr Cameron. Reports in August 2021 started chemoradiation however that had been discontinued secondary to febrile illness and hospitalization at [facility]. He reports at that time he had a questionable pneumonia and was treated with antibiotics discharged home. Patient reports he started chemo 1 week ago (carboplatin, gemcitabine). Last does of chemo on 09/12/21 (gemcitabine). Reports in August his hemoglobin was below 8 so he was given total 2 units PRBCs during his hospitalization. On 09/12/2021 hemoglobin of 8.7, PLT: 143, Cr: 1.7, AST: 42, ALT: 85, Alk Phos: 247. CXR: Right basilar atelectasis Today in ER T: 36.6C, R: 20, P:122, BP: 88/54, 99% on RA. WBC: 16, lactate: 3.0, procalcitonin: 1.8. CXR: bibasilar densities suggestive of atelectasis/scarring. Was given 1L NSS, cefepime. Admission Exam Per Admitting Provider General: no distress, chronic ill appearing Head: normocephalic, atraumatic Eyes: PERRL, EOM's intact, conjunctiva non-injected, anicteric ENT: normal inspection external ears, nose, mucous membranes dry Neck: supple, trachea midline, non-tender Lungs: clear, no respiratory distress, no wheezing/rhonchi/rales CV: RRR, no murmur, no pretibial edema Abd: +stoma right abdomen with clear yellow urine noted in bag, normal BS, soft, non-tender Ext: no cyanosis, no calf tenderness Neuro: A&O x 3, no focal deficits noted, normal affect Skin: warm, dry, Sacrum: +nonblanching erythema with two stage 2 areas of approx 0.5cm ulcer, no discharge Principal Diagnosis (1) Sepsis: (2) UTI (urinary tract infection) due to Enterococcus: (3) Pancytopenia due to antineoplastic chemotherapy: (4) Sacral decubitus ulcer: (5) Elevated LFTs: (6) Bladder cancer: (7) History of ileal conduit: (8) CKD (chronic kidney disease), stage III: (9) CAD (coronary artery disease): (10) HTN (hypertension): Discharge Exam See below Discharge Data Allergies Allergy/AdvReac Type Severity Reaction Status Date / Time chlorhexidine AdvReac Unknown Unknown Unverified 09/15/21 12:59 clopidogrel AdvReac itching Verified 09/15/21 12:59 Consultations 09/15/21 12:36 ED Decision to Admit Stat Ordered Studies 09/19/21 15:05 CT abd pelvis wo con Urgent Hospital Course (1) Sepsis: Uncertain source, no evidence of pneumonia, possible UTI although this may be contamination from the bag. He also has a Stage II sacral ulcer, so skin bacteria also a possibility vs adverse drug effect from the chemotherapy as infusion was 2 days prior to arrival. He is resuscitated and clinically feels improved. Cont amoxicillin to cover the enterococcus and alpha strep that was found in his urine. (2) UTI (urinary tract infection) due to Enterococcus: Complicated UTI with sepsis on admission. cont amoxicillin. Some gross hematuria present with no abdominal pain. This is likely related to malignancy and very low platelet count even causing some spontaneous bleeding. CT a/p imaging ordered with expected abnormalities from known metastatic disease. Did consult urology but will cancel and defer to outpatient setting if this persists after platelet count returns back to normal. Noted that there will be some chronic hydronephrosis expected with any ileal conduit per conversation with party demonstrator urologist. (3) Pancytopenia due to antineoplastic chemotherapy: Anemia likely 2/2 recent chemotherapy and also possible occult GI blood loss with known mass that was radiated for bleeding one month ago. No overt bleeding is seen. Two units of blood given this admission and he remains anemic. Threshold to transfuse would be <7/21. Platelets were 143 on 09/12 per outpatient records. Thrombocytopenia is likely multifactorial including consumption from sepsis, recent chemotherapy and possibly dilution after fluid resuscitation. Cont to trend. Transfuse if <10K or if <20K if bleeding or fever present. 09/19: required 2 units blood, 1 plt. (4) Sacral decubitus ulcer: +stage 2 sacral ulcer. no discharge wound nurse consult, stay off the area and monitor in outpatient wound clinic. (5) Elevated LFTs: AST/ALT improved with treatment overnight. Outside of new kidney stones in his urine bag, not seeing any further reason to image him at this time. He has no abdominal pain and is tolerating PO. Known metastatic disease to liver. Likely related to chemotherapy and this is improved. No abdominal pain. No further workup at this time. (6) Bladder cancer: History of bladder cancer s/p cystoprostatectomy, ileal conduit Recent diagnosis of metastasis to liver, right kidney, abdominal lymph nodes 08/2021 started chemo and radiation however had to be held secondary to febrile illness Had gemcitabine 09/12/[address] Zulma Castro at [facility]. Plans to switch care locally with Dr Valenzuela (7) History of ileal conduit: (8) CKD (chronic kidney disease), stage III: Currently at baseline, avoid nephrotoxic agents and renally dose meds as able. (9) CAD (coronary artery disease): chronic, stable S/P stent in past. Denies CP. Cont medical management with statin, isosorbide (10) HTN (hypertension): Controlled (11) DVT prophylaxis: SCDs, chemoprophylaxis is contraindicated. Full code Dispo-to home yo, d/w Dr Valenzuela WBCs up to 1.13 ROS-No Headache, No Visual Changes, No Nausea, No Vomiting, No Fever, No Chills, No Neck Pain or Stiffness, No Chest Pain, No Palpitations, No SOB, No SALAZAR, No Cough, No Sputum, No Wheezing, No Abdominal Pain, No Diarrhea, No Hematemesis, No Hemoptysis, No Unexpected Weight Loss, No Flank pain, No Melena, No Hematochezia, No Frequency, No Urgency, No Burning, No Hematuria, No Rashes, No Diaphoresis. Appetite is Normal Physical Exam Gen-AAO x 3, NAD, Afebrile Head-NCAT, EOMI, PERRLA, Anicteric Sclera, No Posterior Pharyngeal Erythema Neck-Supple, No JVD, No Thyromegaly, No Masses, No LAD, No Bruits Lungs-Clear to Auscultation Bilaterally, No Rales, No Rhonchi, No Wheezing, No Crepitus Chest-No S4, +S1, +S2, No S3, No Murmurs, No Rubs, No Gallops, No Ectopy Abdomen-Soft, Bowel Sounds Present, Non Tender, Non Distended, No Hepatomegaly, No Splenomegaly, No Palpable Masses, No Rebound, No Rigidity, No Guarding Musculoskeletal-Full Range of Motion Bilaterally, No CVAT Extremities-No Cyanosis, No Clubbing, No Edema Nuero-Cranial Nerves II-XII grossly intact, Motor WNL, DTRs WNL, Strength WNL, Non Focal Psych-Normal Mood Total Time Total Time Spent Total Time Spent (In Minutes): 45 mins Total Time Includes: Examination of the Patient, Discharge Planning, Medication Reconciliation and Communication With Other Providers Discharge Plan Discharge Items Patient Disposition: Home - Self-Care Reason For Visit: FEVER Discharge Diagnosis: (1) Sepsis: (2) UTI (urinary tract infection) due to Enterococcus: (3) Pancytopenia due to antineoplastic chemotherapy: (4) Sacral decubitus ulcer: (5) Elevated LFTs: (6) Bladder cancer: (7) History of ileal conduit: (8) CKD (chronic kidney disease), stage III: (9) CAD (coronary artery disease): (10) HTN (hypertension): Activity: Resume your previous activity Lifting: Gradually increase as tolerated Bathing: No limitations Exercise/Sports: Gradually increase as tolerated Driving/Machine Use: No limitations Weightbearing: Full weightbearing Non-emergency contact: Primary Care Provider and Oncologist Call non-emergency contact if: you have any medication questions Follow-up/Referrals: Reza Valenzuela MD [Surgeon] - (Call for first opening) Rosalio Keys MD [Primary Care Provider] - Diet: Regular Addtl Attending Provider Instructions: None Pending Studies at Discharge: No Stand-Alone Forms: My [facility], Smoking Cessation Medications and DC Order Prescriptions: New bisacodyl [Gentle Laxative (bisacodyl)] 5 mg Tablet,Delayed Release (Dr/Ec) 10 mg PO Q12 PRN (Reason: constipation) Qty: 60 RF: 0 polyethylene glycol 3350 [Miralax] 17 gram Powder In Packet 17 g PO DAILY PRN (Reason: constipation) Qty: 30 RF: 0 Continued atorvastatin 80 mg tablet 80 mg PO HS RF: 0 hydrocodone-acetaminophen 5-325 mg tablet 1 tab PO Q6H PRN (Reason: Pain) RF: 0 ondansetron HCl 4 mg tablet 4 mg PO Q8H PRN (Reason: Nausea And Vomiting) RF: 0 prochlorperazine maleate 10 mg tablet 10 mg PO Q6H PRN (Reason: Nausea And Vomiting) RF: 0 isosorbide mononitrate 60 mg tablet extended release 24 hr 60 mg PO QAM RF: 0 citalopram 20 mg tablet 20 mg PO HS RF: 0 nitroglycerin 0.4 mg tablet, sublingual 0.4 mg sublingual Q5M PRN (Reason: Chest Pain) RF: 0 docusate sodium [Colace] 100 mg Capsule 100 mg PO QAM RF: 0 mirtazapine 15 mg tablet 7.5 mg PO HS RF: 0 albuterol sulfate 90 mcg/actuation HFA aerosol inhaler 2 puff INHALATION Q6H PRN (Reason: Wheezing) RF: 0 Iron With Vitamin C 1 tab PO QAM RF: 0 Discontinued amlodipine 5 mg tablet 5 mg PO QAM RF: 0 Probiotic 10 billion cell Capsule 10,000 mmu cells PO BID RF: 0 Discharge Orders: Discharge Order (Routine); Ordered 09/23/21 Ordered By: Shamir Mejia Admission Data Admit Date/Time: 09/15/21 12:47 Attending Provider: Shamir Mejia Admit Provider: Milton Ortega Primary Care Provider: Rosalio Keys Other Providers: Milton Ortega
== END 2021-09-23 15:41 | disposition home or self-care (01) | DRG 871 ==
LOC: ED 10:36 → EDINP 12:47 → SUATTDRO 12:47 → 2N 20:08

== ENCOUNTER 2021-10-10 00:03 | Inpatient (IN) ==
[2021-10-10] MEDS ORDERED: ONDANSETRON INJ 2 MG/ML 2 ML VIAL IV STA (00:17)
[2021-10-10] MEDS ORDERED: levoFLOXacin/D5W 750 MG/150 ML BAG IV STA (00:19)
--- NOTE | 2021-10-10 00:28 | Emergency Department Note ---
Impression & Plan Hypotension, Tachycardia, LUQ abdominal pain, SOB (shortness of breath), Leukocytosis, Elevated lactic acid level ED Provider Note PVCsNAME: AYAN CROSS AGE: 71 SEX: M : 1950 ARRIVES VIA: Ambulance INFORMANT: [Patient][nursing] ED PROVIDER(S): [Kal Cool MD] CHIEF COMPLAINT: Abdominal pain HISTORY OF PRESENT ILLNESS: The patient is a 71-year-old male who presents to the ER with about 6 hours of left upper quadrant abdominal pain and some nausea. He feels a bit short of breath. His care center felt that he was in need of a ER evaluation. He was a bit hypotensive, he seemed short of breath and tachycardic. The patient does have a known bladder cancer. He has a urostomy. He was in our hospital last month for sepsis. He states he does not want to be intubated. He is not sure what is causing his pain. He felt fine earlier. He rates the pain as severe. REVIEW OF SYSTEMS: See HPI for pertinent positives and negatives. A total of ten systems were reviewed and were otherwise negative. PMHx/PSHx: See Below SOCIAL HISTORY: See Below. PHYSICAL EXAM: GENERAL: Patient is in moderate distress from pain. HEENT: No acute trauma, normocephalic atraumatic, mucous membranes dry, no nasal congestion, no scleral icterus. NECK: No stridor, no adenopathy, no meningismus, trachea is midline. LUNGS: Clear to auscultation bilaterally when listening anterior, no wheeze, no rhonchi, breath sounds equal. Increased respiratory rate. HEART: Without murmurs gallops or rubs, tachycardic and regular ABDOMEN: Soft, moderately tender on the left mid and left upper abdomen, bowel sounds positive, no hernias, no peritonitis. There is a urostomy in the right lower quadrant. Cloudy urine in the bag noted. EXTREMITIES: No cyanosis, full range of motion of all the joints without pain or difficulty, no signs for acute trauma. NEUROLOGIC: Oriented x 3, no acute motor or sensory deficits, no focal weakness. SKIN: No rash, no jaundice, no diaphoresis. DIFFERENTIAL DIAGNOSIS: Appendicitis, sepsis, testicular torsion, diverticulitis, UTI, obstruction, mesenteric ischemia, aortic pathology, inflammatory bowel disease, renal colic, PUD, pancreatitis, biliary pathology, hernia, volvulus, constipation, as well as other pathologies. EMERGENCY DEPARTMENT COURSE/PROCEDURES: ECG: Indication was abdominal pain and shortness of breath. The ECG shows a sinus tachycardia with a rate of 113. There is some nonspecific ST change. No ST elevation. The QTc is 419. Continuous Cardiac Monitoring: An order was placed for continuous cardiac monitoring. The monitor shows a rate of 115 with sinus tachycardia. Critical Care Note: I have personally spent 54 minutes of critical care time in the direct management of this patient. This includes bedside care, interpretation of diagnostic studies, and testing, discussion with consultants, patient, and family members, and other required patient management activities. This 54 minutes is in excess of all separately billable procedures. MEDICAL DECISION MAKING: There is a marked leukocytosis at 66,000, this of course is consistent with infection. The patient is anemic but this anemia is baseline when looking back at previous testing. There was a normal platelet count. INR was a bit elevated at 1.3. Renal panel testing shows some acute kidney injury with a metabolic acidosis. Potassium was a bit high at 5.5. Lactic acid level was quite el evated at 6. This elevation in the lactic acid is consistent with dehydration and with sepsis. There were some elevated liver enzymes. ECG showed a sinus tachycardia, no obvious ischemia. Cardiac enzyme testing x1 was not consistent with acute cardiac injury. No evidence for pancreatitis by our testing. Urinalysis had bacteria consistent with infection. Chest film did not show free air or pneumonia. Abdominal and pelvis CT at this point is pending. The patient arrived hypotensive and tachycardic. He was short of breath. He complained of left upper quadrant abdominal pain. The patient was aggressively managed. He received IV saline, 1.5 L. He received IV Levaquin as empiric antibiotic coverage. He was given IV Zofran and IV fentanyl. The patient does appear somewhat improved with the above treatment. I did speak with the patient, I spoke with his daughter. The patient is not to be aggressively resuscitated. He is in the process of obtaining hospice status. The main goal is to make the patient comfortable. He is not to undergo CPR, he is not to be intubated. We will continue hydration and IV antibiotic therapy. I spoke with case management, the on-call hospitalist was consulted. The family is aware that the patient may not survive this hospitalization. In short, the patient appears septic, he is quite ill. The cause for the left upper quadrant abdominal pain is unclear, we await the CT results for help with this complaint. Past Med/Surg History Medical History Bladder cancer CAD (coronary artery disease) Chronic anemia CKD (chronic kidney disease), stage III III-IV HTN (hypertension) Surgical History History of cholecystectomy History of heart artery stent History of ileal conduit S/P radical cystoprostatectomy Family History Brother Stroke Mother Stroke Father Heart disease Social History Smoking Status: Former smoker Second Hand Exposure: No; Do You Dip or Chew Tobacco: No; Tobacco Cessation Education Requested by Patient: No Hx Alcohol Use: No Hx Substance Use: No Preferred Language: Wolof Communication Ability: Effective Glass Mold Repairer Required: No Beliefs That Will Affect Care: None marital status: Current Living Situation: Spouse Current Living Situation Comment: Lives at home with How many Children do You have: 3 Other Information That Helps Us Care for You: No Feels Safe at Home: Yes Safety Concerns: Feels Safe At This Time Assistive Devices: Oxygen - Continuous Allergies Allergies Allergy/AdvReac Type Severity Reaction Status Date / Time chlorhexidine AdvReac Unknown Unknown Verified 10/10/21 00:37 clopidogrel AdvReac itching Verified 10/10/21 00:37 Home Meds Home Medications Medication Instructions Recorded Confirmed Iron With Vitamin C 1 tab PO QAM 09/15/21 10/10/21 albuterol sulfate 90 mcg/actuation 2 puff INHALATION Q6H PRN 09/15/21 10/10/21 aerosol inhaler atorvastatin 80 mg tablet 80 mg PO HS 09/15/21 10/10/21 citalopram 20 mg tablet 20 mg PO HS 09/15/21 10/10/21 docusate sodium 100 mg capsule 100 mg PO QAM 09/15/21 10/10/21 (Colace) hydrocodone 5 mg-acetaminophen 325 1 tab PO Q6H PRN 09/15/21 10/10/21 mg tablet isosorbide mononitrate 60 mg 60 mg PO QAM 09/15/21 10/10/21 tablet,extended release 24 hr mirtazapine 15 mg tablet 7.5 mg PO HS 09/15/21 10/10/21 nitroglycerin 0.4 mg sublingual 0.4 mg SUBLINGUAL Q5M PRN 09/15/21 10/10/21 tablet ondansetron HCl 4 mg tablet 4 mg PO Q8H PRN 09/15/21 10/10/21 prochlorperazine maleate 10 mg 10 mg PO Q6H PRN 09/15/21 10/10/21 tablet Previous Rx's Medication Instructions Recorded bisacodyl 5 mg tablet,delayed 10 mg PO Q12 PRN #60 tab 09/23/21 release (Gentle Laxative (bisacodyl)) polyethylene glycol 3350 17 gram 17 g PO DAILY PRN #30 ea 09/23/21 oral powder packet (Miralax) Results & Data (ED) Vital Signs Vital Signs - 24 hr 10/10/21 00:07 10/10/21 00:36 10/10/21 01:39 Pulse Rate 105 H Pulse Rate [Finger] 117 H 107 H Respiratory Rate 24 24 20 Respiratory Effort / Characteristics Respiratory Depth Blood Pressure Blood Pressure [Right Arm] 85/63 L 93/63 L Blood Pressure Mean Blood Pressure Mean [Right Arm] 70 73 Blood Pressure Position Blood Pressure Position [Right Arm] Sitting Sitting Pulse Oximetry 99 100 97 Oxygen Delivery Method Nasal Cannula Nasal Cannula Nasal Cannula Oxygen Flow Rate 3 3 3 Sepsis Recent Fever Within 48 Hours Sepsis New/Unexplained Change in Mental Status Sepsis Action Taken by Nursing 10/10/21 02:02 Pulse Rate 105 H Pulse Rate [Finger] Respiratory Rate 24 Respiratory Effort / Characteristics Non-Labored Respiratory Depth Normal Blood Pressure 95/66 L Blood Pressure [Right Arm] Blood Pressure Mean 75 Blood Pressure Mean [Right Arm] Blood Pressure Position Sitting Blood Pressure Position [Right Arm] Pulse Oximetry 100 Oxygen Delivery Method Nasal Cannula Oxygen Flow Rate 3 Sepsis Recent Fever Within 48 Hours No Sepsis New/Unexplained Change in Mental Status No Sepsis Action Taken by Nursing No Action Required Home Medications Current Medication List: was personally reviewed by me Laboratory Data Attestation: I reviewed the patient's lab results. Result diagrams: 10/10/21 00:47 10/10/21 00:47 Lab Results 10/10/21 10/10/21 10/10/21 Range/Units 00:47 00:47 00:47 WBC 66.27 H* (4.8-10.8) K/uL RBC 3.39 L (4.7-6.1) M/uL Hgb 9.5 L (14.0-18.0) g/dL Hct 30.5 L (42-52) % MCV 90.0 (80-100) fL MCH 28.0 (25-34) pg MCHC 31.1 L (32-36) g/dL RDW Std Deviation 69.4 H (36.4-46.3) fL RDW Coeff of Staci 21.6 H (11.5-14.5) % Plt Count 314 (130-400) K/uL MPV 10.1 (7.4-10.4) fL Absolute Nucleated RBC 0.17 H (0-0) K/uL Nucleated RBC % (auto) 0.3 % Neutrophils % (Manual) 89.7 % Lymphocytes % (Manual) 0.0 % Monocytes % (Manual) 3.4 % Metamyelocytes % (Man) 2.6 % Myelocytes % (Man) 4.3 % Neutrophils # (Manual) 59.44 H (1.4-6.5) K/uL Total Absolute Neuts 59.44 H (1.4-6.5) K/uL Total Abs Lymphocytes 0.00 L (1.2-3.4) K/uL Monocytes # (Manual) 2.25 H (0.11-0.59) K/uL Metamyelocytes # (Man) 1.72 H (0-0) K/uL Myelocytes # (Manual) 2.85 H (0-0) K/uL Polychromasia 1+ Anisocytosis Present Tear Drop Cells 1+ Echinocytes 1+ PT 13.3 H (9.0-12.0) Seconds INR 1.3 H (0.9-1.1) APTT (21.0-31.0) Seconds PTT Ratio Sodium 134 L (136-145) mmol/L Potassium 5.5 H (3.5-5.1) mmol/L Chloride 107 (98-107) mmol/L Carbon Dioxide 12 L (21-32) mmol/L Anion Gap 15 H (3-11) BUN 52 H (6-23) mg/dl Creatinine 2.23 H (0.6-1.4) mg/dl Est Cr Clr Drug Dosing Not Reportable Est GFR ( Amer) 33.6 ml/min Est GFR (Non-Af Amer) 29.0 ml/min BUN/Creatinine Ratio 23.3 H (10-20) Glucose 150 H (70-99(Fasting)) mg/dl Lactate (0.4-2.0) mmol/L Calcium 10.9 H (8.5-10.1) mg/dl Total Bilirubin 1.5 H (0.2-1.0) mg/dl AST 157 H (13-39) U/L ALT 85 H (7-52) U/L Alkaline Phosphatase 436 H (34-104) U/L Troponin I 0.03 (0-0.04) ng/ml Total Protein 6.9 (6.0-8.3) gm/dl Albumin 2.3 L (3.4-5.0) gm/dl Globulin 4.6 H (2.5-4.0) gm/dl Albumin/Globulin Ratio 0.5 L (0.9-2) Lipase 27 (11-82) U/L Urine Color Urine Appearance (Clear) Urine pH (4.5-7.5) Ur Specific [place] (1.000-1.030) Urine Protein (Negative) Urine Glucose (UA) (Negative) Urine Ketones (Negative) Urine Blood (Negative) Urine Nitrite (Negative) Urine Bilirubin (Negative) Urine Urobilinogen (Negative) Ur Leukocyte Esterase (Negative) Urine RBC (0-4) /hpf Urine WBC (0-5) /hpf Ur Epithelial Cells (0-5) /lpf Triple Phos Crystals (None Prsent) Urine Bacteria (Negative) SARS-CoV-2, RNA, NAAT (NEGATIVE) 10/10/21 10/10/21 10/10/21 Range/Units 00:47 00:47 01:52 WBC (4.8-10.8) K/uL RBC (4.7-6.1) M/uL Hgb (14.0-18.0) g/dL Hct (42-52) % MCV (80-100) fL MCH (25-34) pg MCHC (32-36) g/dL RDW Std Deviation (36.4-46.3) fL RDW Coeff of Staci (11.5-14.5) % Plt Count (130-400) K/uL MPV (7.4-10.4) fL Absolute Nucleated RBC (0-0) K/uL Nucleated RBC % (auto) % Neutrophils % (Manual) % Lymphocytes % (Manual) % Monocytes % (Manual) % Metamyelocytes % (Man) % Myelocytes % (Man) % Neutrophils # (Manual) (1.4-6.5) K/uL Total Absolute Neuts (1.4-6.5) K/uL Total Abs Lymphocytes (1.2-3.4) K/uL Monocytes # (Manual) (0.11-0.59) K/uL Metamyelocytes # (Man) (0-0) K/uL Myelocytes # (Manual) (0-0) K/uL Polychromasia Anisocytosis Tear Drop Cells Echinocytes PT (9.0-12.0) Seconds INR (0.9-1.1) APTT 31.6 H (21.0-31.0) Seconds PTT Ratio 1.2 Sodium (136-145) mmol/L Potassium (3.5-5.1) mmol/L Chloride (98-107) mmol/L Carbon Dioxide (21-32) mmol/L Anion Gap (3-11) BUN (6-23) mg/dl Creatinine (0.6-1.4) mg/dl Est Cr Clr Drug Dosing Est GFR ( Amer) ml/min Est GFR (Non-Af Amer) ml/min BUN/Creatinine Ratio (10-20) Glucose (70-99(Fasting)) mg/dl Lactate 6.0 H* (0.4-2.0) mmol/L Calcium (8.5-10.1) mg/dl Total Bilirubin (0.2-1.0) mg/dl AST (13-39) U/L ALT (7-52) U/L Alkaline Phosphatase (34-104) U/L Troponin I (0-0.04) ng/ml Total Protein (6.0-8.3) gm/dl Albumin (3.4-5.0) gm/dl Globulin (2.5-4.0) gm/dl Albumin/Globulin Ratio (0.9-2) Lipase (11-82) U/L Urine Color Yellow Urine Appearance Turbid A (Clear) Urine pH >= 9.0 H (4.5-7.5) Ur Specific [place] 1.010 (1.000-1.030) Urine Protein 3+ H (Negative) Urine Glucose (UA) Negative (Negative) Urine Ketones Negative (Negative) Urine Blood Trace-intact H (Negative) Urine Nitrite Negative (Negative) Urine Bilirubin Negative (Negative) Urine Urobilinogen Negative (Negative) Ur Leukocyte Esterase 1+ H (Negative) Urine RBC 0-4 (0-4) /hpf Urine WBC 0-5 (0-5) /hpf Ur Epithelial Cells 0-5 (0-5) /lpf Triple Phos Crystals Present A (None Prsent) Urine Bacteria 4+ H (Negative) SARS-CoV-2, RNA, NAAT (NEGATIVE) 10/10/21 Range/Units 02:00 WBC (4.8-10.8) K/uL RBC (4.7-6.1) M/uL Hgb (14.0-18.0) g/dL Hct (42-52) % MCV (80-100) fL MCH (25-34) pg MCHC (32-36) g/dL RDW Std Deviation (36.4-46.3) fL RDW Coeff of Staci (11.5-14.5) % Plt Count (130-400) K/uL MPV (7.4-10.4) fL Absolute Nucleated RBC (0-0) K/uL Nucleated RBC % (auto) % Neutrophils % (Manual) % Lymphocytes % (Manual) % Monocytes % (Manual) % Metamyelocytes % (Man) % Myelocytes % (Man) % Neutrophils # (Manual) (1.4-6.5) K/uL Total Absolute Neuts (1.4-6.5) K/uL Total Abs Lymphocytes (1.2-3.4) K/uL Monocytes # (Manual) (0.11-0.59) K/uL Metamyelocytes # (Man) (0-0) K/uL Myelocytes # (Manual) (0-0) K/uL Polychromasia Anisocytosis Tear Drop Cells Echinocytes PT (9.0-12.0) Seconds INR (0.9-1.1) APTT (21.0-31.0) Seconds PTT Ratio Sodium (136-145) mmol/L Potassium (3.5-5.1) mmol/L Chloride (98-107) mmol/L Carbon Dioxide (21-32) mmol/L Anion Gap (3-11) BUN (6-23) mg/dl Creatinine (0.6-1.4) mg/dl Est Cr Clr Drug Dosing Est GFR ( Amer) ml/min Est GFR (Non-Af Amer) ml/min BUN/Creatinine Ratio (10-20) Glucose (70-99(Fasting)) mg/dl Lactate (0.4-2.0) mmol/L Calcium (8.5-10.1) mg/dl Total Bilirubin (0.2-1.0) mg/dl AST (13-39) U/L ALT (7-52) U/L Alkaline Phosphatase (34-104) U/L Troponin I (0-0.04) ng/ml Total Protein (6.0-8.3) gm/dl Albumin (3.4-5.0) gm/dl Globulin (2.5-4.0) gm/dl Albumin/Globulin Ratio (0.9-2) Lipase (11-82) U/L Urine Color Urine Appearance (Clear) Urine pH (4.5-7.5) Ur Specific [place] (1.000-1.030) Urine Protein (Negative) Urine Glucose (UA) (Negative) Urine Ketones (Negative) Urine Blood (Negative) Urine Nitrite (Negative) Urine Bilirubin (Negative) Urine Urobilinogen (Negative) Ur Leukocyte Esterase (Negative) Urine RBC (0-4) /hpf Urine WBC (0-5) /hpf Ur Epithelial Cells (0-5) /lpf Triple Phos Crystals (None Prsent) Urine Bacteria (Negative) SARS-CoV-2, RNA, NAAT POSITIVE A* (NEGATIVE) Administered Medications Hydromorphone HCl (Hydromorphone Inj 0.5 Mg/0.5 Ml Syr) 0.5 mg IV Q3H PRN PRN Reason: Pain Stop: 10/24/21 05:58 Last Admin: 10/10/21 15:39 Dose: 0.5 mg Documented by: [id number] Sodium Chloride (Nss 1000ml) 1,000 mls @ 125 mls/hr IV .Q8H LAEX Stop: 11/09/21 07:29 Last Admin: 10/10/21 15:25 Dose: 125 mls/hr Documented by: [id number] Infusion: 10/10/21 15:25 Dose: 125 mls/hr Documented by: [id number] Admin: 10/10/21 07:52 Dose: 125 mls/hr Documented by: [id number] Cefepime HCl 1,000 mg/ Syringe 11.3 mls @ 5.5 mls/min IV Q12H ALEX; Protocol Stop: 10/19/21 12:03 Last Admin: 10/10/21 12:11 Dose: 5.5 mls/min Documented by: [id number] Ondansetron HCl (Ondansetron Inj 2 Mg/Ml 2 Ml Vial) 4 mg IV Q6H PRN PRN Reason: Nausea Stop: 11/09/21 05:58 Last Admin: 10/10/21 07:25 Dose: 4 mg Documented by: [id number] Discontinued Medications Fentanyl Citrate (Fentanyl Citrate 100 Mcg/2 Ml Vial) 50 mcg IV Q15M PRN PRN Reason: Pain Stop: 10/24/21 00:16 Last Admin: 10/10/21 02:49 Dose: 50 mcg Documented by: [id number] Admin: 10/10/21 01:35 Dose: 50 mcg Documented by: [id number] Levofloxacin/Dextrose (Levaquin/D5w) 750 mg in 150 mls @ 100 mls/hr IV NOW STA Stop: 10/10/21 01:48 Last Infusion: 10/10/21 03:36 Dose: 0 mls/hr Documented by: [id number] Admin: 10/10/21 01:47 Dose: 100 mls/hr Documented by: [id number] Sodium Chloride (Nss 1000ml) 1,000 mls @ 999 mls/hr IV .Q1H1M ONE Stop: 10/10/21 02:51 Last Infusion: 10/10/21 04:37 Dose: 0 mls/hr Documented by: [id number] Admin: 10/10/21 03:24 Dose: 999 mls/hr Documented by: [id number] Lorazepam (Ativan) 0.25 mg in 0.5 mls @ 0.5 mls/min IV NOW STA Stop: 10/10/21 03:07 Last Admin: 10/10/21 03:35 Dose: 0.5 mls/min Documented by: [id number] Vancomycin HCl 1,500 mg/ (Sodium Chloride) 530 mls @ 200 mls/hr IV ONE ONE; Protocol Stop: 10/10/21 09:08 Last Infusion: 10/10/21 10:31 Dose: 0 mls/hr Documented by: [id number] Admin: 10/10/21 07:51 Dose: 200 mls/hr Documented by: [id number] Sodium Chloride (Nss) 500 mls @ 500 mls/hr IV .Q1H ALEX Stop: 10/10/21 07:29 Last Infusion: 10/10/21 07:57 Dose: 0 mls/hr Documented by: [id number] Admin: 10/10/21 06:42 Dose: 500 mls/hr Documented by: [id number] Piperacillin Sod/Tazobactam (Sod 3.375 gm/ Dextrose) 115 mls @ 230 mls/hr IV ONE STA; Protocol Stop: 10/10/21 07:00 Last Infusion: 10/10/21 07:57 Dose: 0 mls/hr Documented by: [id number] Admin: 10/10/21 07:15 Dose: 230 mls/hr Documented by: [id number] Ondansetron HCl (Ondansetron Inj 2 Mg/Ml 2 Ml Vial) 4 mg IV NOW STA Stop: 10/10/21 00:18 Last Admin: 10/10/21 01:35 Dose: 4 mg Documented by: [id number] Sodium Bicarbonate (Sodium Bicarb 8.4% Inj 50 Meq/50 Ml Syr) 50 meq IV NOW STA Stop: 10/10/21 04:05 Last Admin: 10/10/21 04:28 Dose: 50 meq Documented by: [id number] Imaging Data Radiologist's Impression: Abdomen/Pelvis CT 10/10/21 00:[address] WITHOUT CONTRAST CT DOSE: 610.77 mGy.cm HISTORY: Generalized abdominal pain. Weakness. TECHNIQUE: Multiaxial CT images of the abdomen and pelvis were performed without contrast. A dose lowering technique was utilized adhering to the principles of ALARA. COMPARISON STUDY: Abdomen and pelvis CT 09/19/2021. FINDINGS: Pulmonary nodules seen within the lung bases have increased in size and number. Dominant nodule within the right lower lobe on image 23 measures 9 mm. This likely represents metastatic disease. No pneumoperitoneum. No pneumatosis. Bilateral L5 spondylolysis. Destructive lesion within the right lateral sixth rib is again noted. This is consistent with a metastatic focus. Partially visualized lesion within the left anterior fourth rib is again noted. Extensive hepatic metastatic disease is again noted. There is a catheter tip seen within the distal SVC. Trace perihepatic and right paracolic gutter fluid, unchanged. Enlargement and heterogeneous appearance to the right kidney which likely represents near complete replacement from a renal mass. There again appears to be extension into the right renal vein and IVC to the level of the iliac vessels. Necrotic right paratracheal lymphadenopathy and multiple right- sided peritoneal metastatic implants have also slightly progressed. Necrotic right adrenal metastasis is again noted. There is a stable 9 mm nodule within the left adrenal gland. The spleen is unremarkable. Prior cholecystectomy. Normal pancreas. Normal caliber abdominal aorta. Mild body wall edema is noted. Left-sided nephrolithiasis persists. There is a 3 mm stone within the proximal left ureter on image 259. This is new from the prior study. However, there is no left-sided hydronephrosis. Necrotic right mesenteric lymphadenopathy has slightly progressed. Surgical clips within the pelvis consistent with prior lymph node dissection. Postoperative changes consistent with prior c ystoprostatectomy with ileal loop diversion. Right pelvic sidewall metastatic focus is again noted. This is partially surrounded by surgical clips. IMPRESSION: 1. Redemonstration of the enlarged and heterogeneous right kidney likely representing near-complete replacement with the heterogeneous mass. This likely represents a renal cell carcinoma as there is suggestion of tumor extension into the right renal vein and IVC. 2. Interval progression of the metastatic disease within the chest, abdomen, and pelvis. 3. There is a 3 mm nonobstructing stone within the proximal left ureter. This is new from the prior study was called/faxed to the ordering physician following dictation. 4. Additional findings as described above. ACT 112: Negative or not required by law. Electronically signed by: Javier Escalera M.D. 10/10/2021 8:20 AM Chest X-Ray 10/10/21 00:17 XR chest 1V portable CLINICAL HISTORY: abd pain. Evaluate lung bases COMPARISON STUDY: 09/15/2021 TECHNIQUE: 1 view of the chest FINDINGS: Single frontal view of the chest demonstrates the cardiomediastinal silhouette to be within normal limits. A Port-A-Cath is in place. There is again asymmetric elevation right hemidiaphragm with right basilar atelectasis versus scarring. The lungs are clear of alveolar opacities. There is no evidence for pleural effusion. There is no evidence for vascular congestion. There is no acute osseous pathology. IMPRESSION: No acute cardiopulmonary disease. There is again asymmetric elevation of the right hemidiaphragm with right basilar atelectasis versus scarring. ACT 112: Negative or not required by law. Electronically signed by: Bobby Del Castillo M.D. 10/10/2021 8:02 AM Discharge Plan Visit Data Chief Complaint: Abdominal Pain Stated Complaint: Abdominal Pain ED Provider: Gilbert Haas Discharge Problem: Hypotension, Tachycardia, LUQ abdominal pain, SOB (shortness of breath), Leukocytosis, Elevated lactic acid level Patient Disposition: Admitted As Inpatient Condition: Serious Discharge Instructions Interventions: ED Discharge Assessment Last Done: 10/10/21 05:13
[2021-10-10 01:08] LABS: INR 1.3 (0.9-1.1); Prothrombin Time 13.3 Seconds (9.0-12.0)
[2021-10-10 01:19] LABS: Troponin I 0.03 ng/ml (0-0.04)
[2021-10-10 01:30] LABS: ANC (manual) 59.44 K/uL (1.4-6.5); Anisocytosis Present; Echinocytes 1+; Hematocrit (blood only) 30.5 % (42-52); Hemoglobin 9.5 g/dL (14.0-18.0); Mean Corpuscular Hgb Conc 31.1 g/dL (32-36); Mean Platelet Volume 10.1 fL (7.4-10.4); Metamyelocytes # (manual) 1.72 K/uL (0-0); Metamyelocytes % (manual) 2.6 %; Monocytes # (manual) 2.25 K/uL (0.11-0.59); Monocytes % (manual) 3.4 %; Myelocytes # (manual) 2.85 K/uL (0-0); Myelocytes % (manual) 4.3 %; Neutrophils # (manual) 59.44 K/uL (1.4-6.5); Neutrophils % (manual) 89.7 %; Nucleated RBC # (auto) 0.17 K/uL (0-0); Nucleated RBC % (auto) 0.3 %; Platelet Count 314 K/uL (130-400); Polychromasia 1+; RDW Coefficient of Variation 21.6 % (11.5-14.5); RDW Standard Deviation 69.4 fL (36.4-46.3); Red Blood Count 3.39 M/uL (4.7-6.1); Tear Drop Cells 1+; White Blood Count 66.27 K/uL (4.8-10.8)
[2021-10-10 01:33] LABS: Alanine Aminotransferase 85 U/L (7-52); Albumin Globulin Ratio 0.5 (0.9-2); Albumin Level 2.3 gm/dl (3.4-5.0); Alkaline Phosphatase 436 U/L (34-104); Anion Gap 15 (3-11); Aspartate Aminotransferase 157 U/L (13-39); BUN Creatinine Ratio 23.3 (10-20); Bilirubin,Total 1.5 mg/dl (0.2-1.0); Blood Urea Nitrogen 52 mg/dl (6-23); Calcium 10.9 mg/dl (8.5-10.1); Carbon Dioxide 12 mmol/L (21-32); Chloride 107 mmol/L (98-107); Est GFR (African American) 33.6 ml/min; Globulin 4.6 gm/dl (2.5-4.0); Glucose 150 mg/dl (70-99(Fasting)); Lipase 27 U/L (11-82); Potassium 5.5 mmol/L (3.5-5.1); Sodium 134 mmol/L (136-145); Total Protein 6.9 gm/dl (6.0-8.3)
[2021-10-10] MEDS: fentaNYL citrate 100 MCG/2 ML VIAL IV PRN ×2 (01:35→02:49)
[2021-10-10 01:45] LABS: Partial Thromboplastin Ratio 1.2; Partial Thromboplastin Time 31.6 Seconds (21.0-31.0)
[2021-10-10] MEDS ORDERED: SODIUM CHLORIDE 0.9% 1000ML 1,000 ML IV ONE (01:51)
[2021-10-10 03:03] LABS: Appearance Urine Turbid (Clear); Bilirubin Urine Negative (Negative); Blood Urine Trace-intact (Negative); Color Urine Yellow; Glucose Urine UA Negative (Negative); Ketones Urine Negative (Negative); Leukocyte Esterase Urine 1+ (Negative); Nitrite Urine Negative (Negative); Protein Urine 3+ (Negative); Urobilinogen Urine Negative (Negative); pH Urine >= 9.0 (4.5-7.5)
[2021-10-10 03:04] LABS: Epithelial Cell Urine 0-5 /lpf (0-5); RBC Urine 0-4 /hpf (0-4); Triple Phosphate Crystal Urine Present (None Prsent); WBC Urine 0-5 /hpf (0-5)
[2021-10-10 03:05] LABS: Bacteria Urine 4+ (Negative)
[2021-10-10] MEDS ORDERED: LORazepam 0.25 MG/0.5 ML VIAL IV STA (03:06)
[2021-10-10] MEDS ORDERED: SODIUM BICARB 8.4% INJ 50 MEQ/50 ML SYR IV STA (04:04)
--- NOTE | 2021-10-10 05:35 | History and Physical Report ---
DATE OF ADMISSION: 10/10/2021. CHIEF COMPLAINT: Sepsis and metastatic bladder cancer. HISTORY OF PRESENT ILLNESS: A 71-year-old male with past medical history significant for CAD, status post stent, hypertension, hyperlipidemia, chronic kidney disease stage III to IV, chronic anemia, bladder cancer with metastasis to liver and kidney lymph nodes, status post cystoprostatectomy and ileal conduit, presents with sepsis. The patient was recently in the hospital, admitted on 09/15/2021 with fever, febrile neutropenia and he was started on cefepime. He was discharged on 09/23/2021. During hospitalization, he was treated for UTI and sepsis and also had pancytopenia due to chemotherapy, required PRBC transfusion. He also has significant thrombocytopenia and received 1 unit of platelets. Also had elevated LFTs. Did okay and got discharged. As per the daughter, who is also a physician, the patient by the time he reached home, he had COVID, but except cough there was no fever or any other symptoms. But today, the patient was having lot of pain in the left upper quadrant, had some nausea, was short of breath and that is why he was brought into the ER. He was found to be hypotensive and somewhat short of breath and tachycardic and found to be in sepsis. White count was 66, hemoglobin was okay at 9.5, platelets are 314. His potassium was 5.5, bicarbonate 12, creatinine 2.2, lactate was 6, AST 157, ALT 85, alkaline phosphatase 436. Urinalysis positive for leukocyte esterase, bacteria. COVID positive. CT of abdomen and pelvis done in the ER. Unchanged metastatic disease from right renal neoplasm, enlarged right kidney with mass-like appearance, grossly unchanged from prior study.Hepatic metastases, metastases to retroperitoneal space and right paracolic gutter, mild ascites. Right tube ileostomy was found. The patient is mostly lethargic, says he is not feeling good. The daughter is in the room . The patient is e DNR/DNI and no aggressive measure except for antibiotics and fluids for now, and keeping him comfortable is the goal. There was no nausea or vomiting at home. No diarrhea. No other complaints except for body aches and his appetite is down. No obvious fever at home. Not ambulating at home, very difficult to get him to the bedside commode, not eating much. ALLERGIES: CHLORHEXIDINE, PLAVIX. PAST MEDICAL HISTORY: As mentioned above. PAST SURGICAL HISTORY: Status post cholecystectomy, history of cardiac stent, history of ileal conduit, history of status post radical cystoprostatectomy. FAMILY HISTORY: Significant for brother has stroke; mother has stroke, father has heart disease. SOCIAL HISTORY: He lives at home with his . No smoking history. REVIEW OF SYSTEMS: Could not get complete review of systems as the patient is somewhat lethargic. PHYSICAL EXAMINATION: GENERAL: The patient is somewhat drowsy, but arousable, seems to be in pain. Not in acute distress. VITAL SIGNS: Temperature afebrile, pulse 104, respiratory rate 18, blood pressure 104/69, oxygen 100% on 3 liters, blood pressure was 85/63 when he came in. HEENT: No pallor, no icterus. Oral mucosa moist. NECK: No JVD. No neck masses. CARDIOVASCULAR: S1 and S2 heard. Tachycardia. No murmurs. RESPIRATORY SYSTEM: Normal AP diameter. No accessory muscle use. No wheezing, no crackles. ABDOMEN: Soft, bowel sounds present. Diffuse mild discomfort and tenderness present. No distention. CENTRAL NERVOUS SYSTEM: Drowsy, arousable to name. Obeys simple commands. No facial droop. EXTREMITIES: Bilateral lower extremity gross edema present. LABORATORY DATA: WBC 66.2, hemoglobin 9.5, hematocrit 30.5, platelets 314. PT 13.3, INR 1.3, APTT 31.6. Sodium 134, potassium 5.5, chloride 107, bicarbonate 12, BUN 52, creatinine 2.2, serum glucose 150. Lactate 6, calcium 10.9, total bilirubin 1.5, AST 157, ALT 185, alkaline phosphatase 436. Troponin I less than 0.03. Urinalysis, positive for leukocyte esterase and +4 bacteria. SARS-CoV-2 positive. IMAGING DATA: Chest x-ray, no acute findings. CT of abdomen and pelvis, preliminary report, as mentioned above in the H and P. EKG: Sinus tachycardia at a rate of 113. No significant change was found. ASSESSMENT AND PLAN: This is a 71-year-old male who presents with metastatic bladder cancer, presents with sepsis. 1. Sepsis, mostly from the urinary tract infection: Severe sepsis. Blood pressure was low when he came in,improved with fluids. Lactate was 6. Got Levaquin based on recent cultures. Will place him on IV vancomycin and cefepime.IV fluids. Follow the cultures. Follow repeat lactic acid. NO aggressive measures except for abx and fluids for now as per my discussion with the family.Plan to keep the patient comfortable. 2. Metastatic bladder cancer: Bladder cancer diagnosed in 2009, had multiple TURBT, finally underwent radical cystoprostatectomy and ileal conduit in August 2017. Received chemo.Multiple metastasis Currently family is leaning towards comfort care. Will keep him comfortable with IV Dilaudid p.r.n. and follow with above tx for sepsis. If improves home with hospice can be considered. 3. History of sacral decubitus ulcer: 4. Acute kidney injury on chronic kidney disease stage III to IV: Follow the labs.Avoid nephrotoxic agents. Baseline creatinine 1.2, presently with creatinine of 2.2. 5. Metabolic acidosis: and lactic acidosis, probably from the sepsis. Will give an amp of bicarbonate. Follow the repeat labs. 6. Elevated LFTs from metastatic disease: Follow the repeat labs. 7. History of coronary artery disease, history of hypertension: Currently blood pressure is low. Holding blood pressure medications. 8. Deep venous thrombosis prophylaxis: Sequential compression devices. DISPOSITION: Inpatient hospice or home hospice. Social service to help with discharge planning. CODE STATUS: DNR/DNI as per discussion with daughter. Job ID: [id number] [facility]
[2021-10-10] MEDS ORDERED: VANCOMYCIN CONSULT ACTIVE PRN (05:59)
[2021-10-10] MEDS ORDERED: ONDANSETRON INJ 2 MG/ML 2 ML VIAL IV PRN (05:59)
[2021-10-10] MEDS ORDERED: ACETAMINOPHEN 325 MG TAB PO PRN (05:59)
[2021-10-10] MEDS ORDERED: ALBUTEROL HFA 8 GM INHALER INH PRN (05:59)
[2021-10-10] MEDS ORDERED: PIPERACILL/TAZOBAC CONSULT ACTIVE PRN (05:59)
[2021-10-10] MEDS ORDERED: HYDROCODONE/ACETAMOPHEN 5/325MG TAB PO PRN (05:59)
[2021-10-10] MEDS ORDERED: VANCOMYCIN HCL 1,500 MG in SODIUM CHLORIDE 0.9% 500 ML IV ONE (06:30)
[2021-10-10] MEDS ORDERED: SODIUM CHLORIDE 0.9% 500 ML IV SCH (06:30)
[2021-10-10] MEDS ORDERED: PIPERACILLIN/TAZOBACTAM 3.375 GM in DEXTROSE 5% 100 ML IV STA (06:31)
[2021-10-10] MEDS ORDERED: HEPARIN 100 UNIT/ML 5ML FLUSH FLUSH PRN (06:46)
[2021-10-10] MEDS: SODIUM CHLORIDE 0.9% 1000ML 1,000 ML IV SCH ×3 (07:52→23:32)
--- NOTE | 2021-10-10 08:03 | XRay Report ---
XR chest 1V portable CLINICAL HISTORY: abd pain. Evaluate lung bases COMPARISON STUDY: 09/15/2021 TECHNIQUE: 1 view of the chest FINDINGS: Single frontal view of the chest demonstrates the cardiomediastinal silhouette to be within normal li mits. A Port-A-Cath is in place. There is again asymmetric elevation right hemidiaphragm with right b asilar atelectasis versus scarring. The lungs are clear of alveolar opacities. There is no evidence f or pleural effusion. There is no evidence for vascular congestion. There is no acute osseous patholog y. IMPRESSION: No acute cardiopulmonary disease. There is again asymmetric elevation of the right hemidi aphragm with right basilar atelectasis versus scarring. ACT 112: Negative or not required by law. Electronically signed by: Bobby Del Castillo M.D. 10/10/2021 8:02 AM
--- NOTE | 2021-10-10 08:21 | CT Scan Report ---
ABDOMEN AND PELVIS CT WITHOUT CONTRAST CT DOSE: 610.77 mGy.cm HISTORY: Generalized abdominal pain. Weakness. TECHNIQUE: Multiaxial CT images of the abdomen and pelvis were performed without contrast. A dose lo wering technique was utilized adhering to the principles of ALARA. COMPARISON STUDY: Abdomen and pelvis CT 09/19/2021. FINDINGS: Pulmonary nodules seen within the lung bases have increased in size and number. Dominant no dule within the right lower lobe on image 23 measures 9 mm. This likely represents metastatic disease . No pneumoperitoneum. No pneumatosis. Bilateral L5 spondylolysis. Destructive lesion within the righ t lateral sixth rib is again noted. This is consistent with a metastatic focus. Partially visualized lesion within the left anterior fourth rib is again noted. Extensive hepatic metastatic disease is ag ain noted. There is a catheter tip seen within the distal SVC. Trace perihepatic and right paracolic gutter fluid, unchanged. Enlargement and heterogeneous appearance to the right kidney which likely re presents near complete replacement from a renal mass. There again appears to be extension into the ri ght renal vein and IVC to the level of the iliac vessels. Necrotic right paratracheal lymphadenopathy and multiple right-sided peritoneal metastatic implants have also slightly progressed. Necrotic righ t adrenal metastasis is again noted. There is a stable 9 mm nodule within the left adrenal gland. The spleen is unremarkable. Prior cholecystectomy. Normal pancreas. Normal caliber abdominal aorta. Mild body wall edema is noted. Left-sided nephrolithiasis persists. There is a 3 mm stone within the prox imal left ureter on image 259. This is new from the prior study. However, there is no left-sided hydr onephrosis. Necrotic right mesenteric lymphadenopathy has slightly progressed. Surgical clips within the pelvis consistent with prior lymph node dissection. Postoperative changes consistent with prior c ystoprostatectomy with ileal loop diversion. Right pelvic sidewall metastatic focus is again noted. T his is partially surrounded by surgical clips. IMPRESSION: 1. Redemonstration of the enlarged and heterogeneous right kidney likely representing near-complete r eplacement with the heterogeneous mass. This likely represents a renal cell carcinoma as there is sug gestion of tumor extension into the right renal vein and IVC. 2. Interval progression of the metastatic disease within the chest, abdomen, and pelvis. 3. There is a 3 mm nonobstructing stone within the proximal left ureter. This is new from the prior s tudy was called/faxed to the ordering physician following dictation. 4. Additional findings as described above. ACT 112: Negative or not required by law. Electronically signed by: Javier Escalera M.D. 10/10/2021 8:20 AM
--- NOTE | 2021-10-10 09:04 | Pharmacy Report ---
Pharmacy Vanc AUC Short Note - Date of Service October 10, 2021 - Assessment & Plan Assessment 71 year old M admitted with Sepsis, complicated UTI. Received Levaquin 750mg IV x 1 and Zosyn 3.375g IV x1 in ED Started on Vanc + Zosyn on admission, discussed w/ Dr Ortega - change to Vanc + Cefepime for urinary source and NOEHMI (SCr 2.2, baseline 1.2) Pt on comfort care + IVF + antibiotics. Urine and blood cultures pending. Hx enterococcus growing in urine culture in September 2021, diaz sensitive except intermediate to Cipro. Plan Vancomycin * Given 1500mg IV x 1 (17mg/kg) * AUC/NILAY is the preferred PK/PD target for vancomycin * AUC guided dosing is effective and associated with decreased risk of nephrotoxicity compared to traditional trough targets * Vancomycin 1g (11mg/kg) IV q24h is predicted to achieve target AUC/NILAY of 400- 600 mg/L.hr and may be associated with a 13 % risk of nephrotoxicity * Trough level to be ordered if duration of therapy extends beyond 48 hours Cefepime: Target dose 2g IV Q12H for complicated UTI Cefepime 1g IV Q12H for CrCl 30-60ml/min Pharmacy will continue to follow and will adjust dose/frequency as necessary. Thank you.
[2021-10-10] MEDS ORDERED: PROMETHAZINE HCL 25 MG in SODIUM CHLORIDE 0.9% 50 ML IV PRN (11:48)
--- NOTE | 2021-10-10 11:56 | Communication Note ---
Date of Service: October 10, 2021 Patient seen and examined Currently reports persistent nausea associated with abd discomfort Reports some cough. Denied any chest pain or shortness of breath Denied any fevers, chills at this time Denied diarrhea Reports anorexia Exam notable for ill looking man in no obvious distress on nasal oxygen with right chest port, urostomy bag and lower extremity edema Labs notable for WBC 66K, Hb 9.5,Na 134, K 5.5, CO 12, BUN 52, Cr 2.23,AST 157, Alk P 436, ALT 85, Tbil 1.5\ Abd CT show right kidney mass with extension into vein/IVC, mets to chest,abd and pelvis Patient being managed for Severe sepsis likely due to UTI, NOHEMI Agree with plans as detailed by Dr Ortega in H&P this AM Continue antibiotics, IVF and antinausea meds I spoke with daughter who is also a physician. She will want home hospice services arranged CM working on this
[2021-10-10] MEDS ORDERED: PIPERACILLIN/TAZOBACTAM 3.375 GM in DEXTROSE 5% 100 ML IV SCH (12:00)
[2021-10-10] MEDS: CEFEPIME 1,000 MG in SYRINGE 0 ML IV SCH ×2 (12:11→23:36)
[2021-10-10] MEDS: HYDROmorphone INJ 0.5 MG/0.5 ML SYR IV PRN (15:39)
[2021-10-10] MEDS ORDERED: VANCOMYCIN HCL 1,000 MG in SODIUM CHLORIDE 0.9% 250 ML IV SCH (20:00)
[2021-10-10] MEDS: MIRTAZAPINE TAB 15 MG TAB PO SCH (20:43)
--- NOTE | 2021-10-10 23:03 | Electrocardiogram Report ---
Test Reason : Blood Pressure : / mmHG Vent. Rate : 113 BPM Atrial Rate : 113 BPM P-R Int : 132 ms QRS Dur : 076 ms QT Int : 306 ms P-R-T Axes : 059 004 055 degrees QTc Int : 419 ms Sinus tachycardia Possible Left atrial enlargement Cannot rule out Inferior infarct When compared with ECG of 15-SEP-2021 10:54, No significant change was found Confirmed by Jose Luis Harden ([id number]) on 10/10/2021 11:02:51 PM Referred By: REFERRED SELF Confirmed By:Jose Luis Harden
[2021-10-11 06:21] LABS: Hematocrit (blood only) 27.1 % (42-52); Hemoglobin 8.3 g/dL (14.0-18.0); Mean Corpuscular Hemoglobin 27.8 pg (25-34); Mean Corpuscular Hgb Conc 30.6 g/dL (32-36); Mean Corpuscular Volume 90.6 fL (80-100); Mean Platelet Volume 11.1 fL (7.4-10.4); Nucleated RBC # (auto) 0.24 K/uL (0-0); Nucleated RBC % (auto) 0.6 %; Platelet Count 175 K/uL (130-400); RDW Standard Deviation 71.3 fL (36.4-46.3); Red Blood Count 2.99 M/uL (4.7-6.1); White Blood Count 39.08 K/uL (4.8-10.8)
[2021-10-11] MEDS: HYDROmorphone INJ 0.5 MG/0.5 ML SYR IV PRN (06:34)
[2021-10-11 06:40] LABS: Anisocytosis Present; Basophils # (auto) 0.05 K/uL (0-0.2); Basophils % (auto) 0.1 %; Echinocytes 1+; Eosinophils # (auto) 0.01 K/uL (0-0.5); Immature Granulocytes # (auto) 0.76 K/uL (0.00-0.02); Immature Granulocytes % (auto) 1.9 %; Lymphocytes % (auto) 3.8 %; Monocytes # (auto) 2.42 K/uL (0.11-0.59); Monocytes % (auto) 6.2 %; Neutrophils # (auto) 34.34 K/uL (1.4-6.5); Ovalocytes 1+; Polychromasia 1+; Schistocytes 1+
[2021-10-11 06:42] LABS: BUN Creatinine Ratio 23.4 (10-20); Calcium 8.9 mg/dl (8.5-10.1); Creatinine Clr Calc Pharmacy 27.5 ml/min; Est GFR (African American) 25.7 ml/min; Est GFR (Non-African American) 22.2 ml/min; Potassium 6.1 mmol/L (3.5-5.1)
[2021-10-11] MEDS ORDERED: SODIUM POLYSTYRENE SULFONATE 15G/60ML SUSP PO STA (06:48)
[2021-10-11] MEDS ORDERED: DEXTROSE 50% 50 ML SYRINGE IV STA (06:48)
[2021-10-11] MEDS ORDERED: STAT IV STA (06:48)
[2021-10-11] MEDS ORDERED: CALCIUM GLUCONATE 10% 1,000 MG in DEXTROSE 5% 50 ML IV ONE (06:48)
[2021-10-11] MEDS ORDERED: INSULIN HUMAN REGULAR PER UNIT 10 UNITS in SYRINGE 9.9 ML IV STA (06:48)
[2021-10-11] MEDS: SODIUM CHLORIDE 0.9% 1000ML 1,000 ML IV SCH ×2 (07:53→16:02)
[2021-10-11] MEDS ORDERED: PIPERACILL/TAZOBAC CONSULT ACTIVE PRN (10:08)
[2021-10-11] MEDS ORDERED: PIPERACILLIN/TAZOBACTAM 4.5 GM in DEXTROSE 5% 100 ML IV ONE (10:30)
[2021-10-11] MEDS: PIPERACILLIN/TAZOBACTAM 3.375 GM in DEXTROSE 5% 100 ML IV SCH (16:02)
[2021-10-11] MEDS ORDERED: ONDANSETRON 4 MG OD TAB SL PRN (16:10)
[2021-10-11] MEDS ORDERED: LORazepam 0.5 MG TAB PO PRN (16:10)
--- NOTE | 2021-10-11 18:20 | Hospitalist Progress Note ---
Date of Service October 11, 2021 Assessment & Plan (1) Sepsis: Plan: Patient is a 71 yr male who presents with metastatic bladder cancer, presents with sepsis. Severe Sepsis UTI In setting of COVID infection Blood cultures negative to date Urine culture growing gram-negative\ IV vancomycin, cefepime transition to Zosyn Follow-up cultures Goal is comfort as per patient's daughter. Plan to be transition to home hospice likely tomorrow No aggressive measures COVID 19 infection CXR:No acute cardiopulmonary disease. There is again asymmetric elevation of the right hemidiaphragm with right basilar atelectasis versus scarring. Currently saturating well on room air Oxygen supplementation as needed Metastatic bladder cancer: Bladder cancer diagnosed in 2009, had multiple TURBT S/P radical cystoprostatectomy and ileal conduit in August 2017. Received chemo.Multiple metastasis --CT ABD:Redemonstration of the enlarged and heterogeneous right kidney likely representing near-complete replacement with the heterogeneous mass. This likely represents a renal cell carcinoma as there is suggestion of tumor extension into the right renal vein and IVC. Interval progression of the metastatic disease within the chest, abdomen, and pelvis. There is a 3 mm nonobstructing stone within the proximal left ureter. This is new from the prior study was called/faxed to the ordering physician following dictation. -Plan to be transition to hospice upon discharge Goal is comfort as per patient's family next Acute kidney injury on chronic kidney disease stage III to IV: Cr slowly worsening Avoid nephrotoxic agents as able Continue IV fluids Monitor renal function Metabolic acidosis: and lactic acidosis Secondary to above Received bicarbonate Monitor Elevated LFTs Likely metastatic disease Monitor CAD Hypertension BP relatively low Monitor Code Status DNI/DNR Disposition Home Hospice Admission and Anticipated Discharge Date Admission Date: October 10, 2021 Subjective Patient is seen and examined at bedside States having cough and shortness of breath on exertion Also reports generalized weakness Offers no other complaints Discussed with patient's daughter Review of Systems Review of Systems: All systems reviewed & are unremarkable except as noted in Subjective Physical Exam Physical Exam: Physical Exam: Vitals signs as noted above General Appearance:Moderately built and nourished, no apparent distress Head: normocephalic, Atraumatic Eyes: normal inspection, EOMI Neck: supple, Trachea midline Respiratory/Chest: Decreased breath sounds, CTA Cardiovascular: S1, S2, No murmur Abdomen/GI:Soft, Non tender, Bowel sounds present Extremities/Musculoskeletal:normal inspection, 2+ B/L LE edema Neurologic/Psych:AAOX3, grossly no focal neurological deficits Skin: normal color, warm Results & Data [facility] & [facility] ([facility]) Vital Signs (Past 12 Hours) Vital Signs Temp Pulse Resp BP BP Pulse Ox 10/11/21 15:12 35.9 C L 99 H 22 106/71 94 10/11/21 11:00 36.6 C 101 H 22 96/66 L 81/57 L 98 Laboratory Results Short CBC 10/11/21 Range/Units 05:26 WBC 39.08 H* (4.8-10.8) K/uL Hgb 8.3 L (14.0-18.0) g/dL Hct 27.1 L (42-52) % Plt Count 175 (130-400) K/uL BMP 10/11/21 05:26 Sodium 135 L Potassium 6.1 H* Chloride 111 H Carbon Dioxide 18 L BUN 65 H Creatinine 2.78 H D Glucose 97 Calcium 8.9 D
[2021-10-11] MEDS ORDERED: MELATONIN 3 MG TAB PO PRN (20:21)
[2021-10-11] MEDS ORDERED: METOCLOPRAMIDE HCL INJ 5 MG/ML 2 ML VIAL IV ONE ×2 (20:21→22:26)
[2021-10-11] MEDS: MIRTAZAPINE TAB 15 MG TAB PO SCH (20:52)
[2021-10-12] MEDS: PIPERACILLIN/TAZOBACTAM 3.375 GM in DEXTROSE 5% 100 ML IV SCH ×2 (00:06→07:59)
[2021-10-12] MEDS: SODIUM CHLORIDE 0.9% 1000ML 1,000 ML IV SCH ×2 (00:08→08:12)
[2021-10-12] MEDS ORDERED: BACLOFEN 10 MG TAB PO PRN (05:35)
[2021-10-12 06:19] LABS: Calcium 8.5 mg/dl (8.5-10.1); Creatinine Clr Calc Pharmacy 25.9 ml/min; Est GFR (African American) 23.9 ml/min; Est GFR (Non-African American) 20.6 ml/min; Potassium 5.6 mmol/L (3.5-5.1)
[2021-10-12 06:24] LABS: Hematocrit (blood only) 24.6 % (42-52); Hemoglobin 7.6 g/dL (14.0-18.0); Mean Corpuscular Hemoglobin 28.4 pg (25-34); Mean Corpuscular Hgb Conc 30.9 g/dL (32-36); Mean Corpuscular Volume 91.8 fL (80-100); Nucleated RBC # (auto) 0.07 K/uL (0-0); Nucleated RBC % (auto) 0.2 %; Platelet Count 164 K/uL (130-400); RDW Coefficient of Variation 22.6 % (11.5-14.5); RDW Standard Deviation 73.6 fL (36.4-46.3); Red Blood Count 2.68 M/uL (4.7-6.1); White Blood Count 35.71 K/uL (4.8-10.8)
[2021-10-12 06:36] LABS: Anisocytosis Present; Basophils # (auto) 0.02 K/uL (0-0.2); Basophils % (auto) 0.1 %; Echinocytes 1+; Eosinophils # (auto) 0.01 K/uL (0-0.5); Immature Granulocytes # (auto) 0.41 K/uL (0.00-0.02); Immature Granulocytes % (auto) 1.1 %; Lymphocytes # (auto) 1.66 K/uL (1.2-3.4); Lymphocytes % (auto) 4.6 %; Monocytes # (auto) 1.61 K/uL (0.11-0.59); Monocytes % (auto) 4.5 %; Neutrophils % (auto) 89.7 %; Ovalocytes 1+
[2021-10-12] MEDS ORDERED: CEFDINIR 300 MG CAP PO SCH (09:00)
--- NOTE | 2021-10-12 09:12 | Hospitalist Progress Note ---
Date of Service October 12, 2021 Assessment & Plan (1) Sepsis: Plan: Patient is a 71 yr male who presents with metastatic bladder cancer, presents with sepsis. Severe Sepsis UTI In setting of COVID infection Blood cultures negative to date Urine culture growing Providentia Rettgeri IV vancomycin, cefepime transition to Zosyn>>>PO antibiotics to complete the course Goal is comfort as per patient's daughter and patient. Plan to transition to home hospice upon discharge No aggressive measures COVID 19 infection CXR:No acute cardiopulmonary disease. There is again asymmetric elevation of the right hemidiaphragm with right basilar atelectasis versus scarring. Currently saturating well on room air Oxygen supplementation as needed Metastatic bladder cancer: Bladder cancer diagnosed in 2009, had multiple TURBT S/P radical cystoprostatectomy and ileal conduit in August 2017. Received chemo.Multiple metastasis --CT ABD:Redemonstration of the enlarged and heterogeneous right kidney likely representing near-complete replacement with the heterogeneous mass. This likely represents a renal cell carcinoma as there is suggestion of tumor extension into the right renal vein and IVC. Interval progression of the metastatic disease wit hin the chest, abdomen, and pelvis. There is a 3 mm nonobstructing stone within the proximal left ureter. This is new from the prior study was called/faxed to the ordering physician following dictation. -Plan to be transition to hospice upon discharge Goal is comfort as per patient's family next Acute kidney injury on chronic kidney disease stage III to IV: Cr slowly worsening Avoid nephrotoxic agents as able Received IV fluids Monitor renal function Cr 2.96 today Metabolic acidosis: and lactic acidosis Secondary to above Received bicarbonate Monitor Elevated LFTs Likely metastatic disease Monitor CAD Hypertension BP relatively low Monitor Code Status DNI/DNR Disposition Home Hospice Admission and Anticipated Discharge Date Admission Date: October 10, 2021 Subjective Patient is seen and examined at bedside States having cough with expectoration Also reports hiccups Denies any significant shortness of breath Prefers to be discharged home Review of Systems Review of Systems: All systems reviewed & are unremarkable except as noted in Subjective Physical Exam Physical Exam: Physical Exam: Vitals signs as noted above General Appearance:Moderately built and nourished, no apparent distress Head: normocephalic, Atraumatic Eyes: normal inspection, EOMI Neck: supple, Trachea midline Respiratory/Chest: Decreased breath sounds, CTA Cardiovascular: S1, S2, No murmur Abdomen/GI:Soft, Non tender, Bowel sounds present Extremities/Musculoskeletal:normal inspection, 2+ B/L LE edema Neurologic/Psych:AAOX3, grossly no focal neurological deficits Skin: normal color, warm Results & Data Results & Data ([facility]) Vital Signs (Past 12 Hours) Vital Signs Temp Pulse Resp BP Pulse Ox 10/12/21 07:11 36.6 C 100 H 17 107/70 97 Laboratory Results Short CBC 10/12/21 Range/Units 05:25 WBC 35.71 H* (4.8-10.8) K/uL Hgb 7.6 L (14.0-18.0) g/dL Hct 24.6 L (42-52) % Plt Count 164 (130-400) K/uL BMP 10/12/21 05:25 Sodium 136 Potassium 5.6 H Chloride 112 H Carbon Dioxide 16 L BUN 74 H Creatinine 2.96 H Glucose 95 Calcium 8.5
--- NOTE | 2021-10-12 14:45 | Discharge Summary ---
Date of Service October 12, 2021 Admission HPI Per Admitting Provider CHIEF COMPLAINT: Sepsis and metastatic bladder cancer. HISTORY OF PRESENT ILLNESS: A 71-year-old male with past medical history significant for CAD, status post stent, hypertension, hyperlipidemia, chronic kidney disease stage III to IV, chronic anemia, bladder cancer with metastasis to liver and kidney lymph nodes, status post cystoprostatectomy and ileal conduit, presents with sepsis. The patient was recently in the hospital, admitted on 09/15/2021 with fever, febrile neutropenia and he was started on cefepime. He was discharged on 09/23/2021. During hospitalization, he was treated for UTI and sepsis and also had pancytopenia due to chemotherapy, required PRBC transfusion. He also has significant thrombocytopenia and received 1 unit of platelets. Also had elevated LFTs. Did okay and got discha rged. As per the daughter, who is also a physician, the patient by the time he reached home, he had COVID, but except cough there was no fever or any other symptoms. But today, the patient was having lot of pain in the left upper quadrant, had some nausea, was short of breath and that is why he was brought into the ER. He was found to be hypotensive and somewhat short of breath and tachycardic and found to be in sepsis. White count was 66, hemoglobin was okay at 9.5, platelets are 314. His potassium was 5.5, bicarbonate 12, creatinine 2.2, lactate was 6, AST 157, ALT 85, alkaline phosphatase 436. Urinalysis positive for leukocyte esterase, bacteria. COVID positive. CT of abdomen and pelvis done in the ER. Unchanged metastatic disease from right renal neoplasm, enlarged right kidney with mass-like appearance, grossly unchanged from prior study.Hepatic metastases, metastases to retroperitoneal space and right paracolic gutter, mild ascites. Right tube ileostomy was found. The patient is mostly lethargic, says he is not feeling good. The daughter is in the room . The patient is e DNR/DNI and no aggressive measure except for antibiotics and fluids for now, and keeping him comfortable is the goal. There was no nausea or vomiting at home. No diarrhea. No other complaints except for body aches and his appetite is down. No obvious fever at home. Not ambulating at home, very difficult to get him to the bedside commode, not eating much. Admission Exam Per Admitting Provider PHYSICAL EXAMINATION: GENERAL: The patient is somewhat drowsy, but arousable, seems to be in pain. Not in acute distress. VITAL SIGNS: Temperature afebrile, pulse 104, respiratory rate 18, blood pressure 104/69, oxygen 100% on 3 liters, blood pressure was 85/63 when he came in. HEENT: No pallor, no icterus. Oral mucosa moist. NECK: No JVD. No neck masses. CARDIOVASCULAR: S1 and S2 heard. Tachycardia. No murmurs. RESPIRATORY SYSTEM: Normal AP diameter. No accessory muscle use. No wheezing, no crackles. ABDOMEN: Soft, bowel sounds present. Diffuse mild discomfort and tenderness present. No distention. CENTRAL NERVOUS SYSTEM: Drowsy, arousable to name. Obeys simple commands. No facial droop. EXTREMITIES: Bilateral lower extremity gross edema present. Principal Diagnosis Severe Sepsis Urinary Tract Infection COVID 19 infection Metastatic bladder cancer Acute kidney injury Discharge Data Allergies Allergy/AdvReac Type Severity Reaction Status Date / Time chlorhexidine AdvReac Unknown Unknown Verified 10/10/21 00:37 clopidogrel AdvReac itching Verified 10/10/21 00:37 Consultations 10/10/21 01:52 ED Decision to Admit Stat 10/10/21 08:00 Consult Palliative Care Routine Ordered Studies 10/10/21 00:17 CT abd pelvis wo con Urgent Hospital Course (1) Sepsis: Patient is a 71 yr male who presents with metastatic bladder cancer, presents with sepsis. Severe Sepsis UTI In setting of COVID infection Blood cultures negative to date Urine culture growing Providentia Rettgeri IV vancomycin, cefepime transition to Zosyn>>>PO antibiotics to complete the course Goal is comfort as per patient's daughter and patient. Plan to transition to home hospice upon discharge No aggressive measures COVID 19 infection CXR:No acute cardiopulmonary disease. There is again asymmetric elevation of the right hemidiaphragm with right basilar atelectasis versus scarring. Currently saturating well on room air Oxygen supplementation as needed Metastatic bladder cancer: Bladder cancer diagnosed in 2009, had multiple TURBT S/P radical cystoprostatectomy and ileal conduit in August 2017. Received chemo.Multiple metastasis --CT ABD:Redemonstration of the enlarged and heterogeneous right kidney likely representing near-complete replacement with the heterogeneous mass. This likely represents a renal cell carcinoma as there is suggestion of tumor extension into the right renal vein and IVC. Interval progression of the metastatic disease within the chest, abdomen, and pelvis. There is a 3 mm nonobstructing stone within the proximal left ureter. This is new from the prior study was called/faxed to the ordering physician following dictation. -Plan to be transition to hospice upon discharge Goal is comfort as per patient's family next Acute kidney injury on chronic kidney disease stage III to IV: Cr slowly worsening Avoid nephrotoxic agents as able Received IV fluids Monitor renal function Cr 2.96 today Metabolic acidosis: and lactic acidosis Secondary to above Received bicarbonate Monitor Elevated LFTs Likely metastatic disease Monitor CAD Hypertension BP relatively low Monitor Code Status DNI/DNR Disposition Home Hospice Total Time Total Time Spent Total Time Spent (In Minutes): 45 minutes Discharge Plan Discharge Items Patient Disposition: Hospice - Home Reason For Visit: ABDOMINAL PAIN Discharge Diagnosis: Severe Sepsis Urinary Tract Infection COVID 19 infection Metastatic bladder cancer Acute kidney injury Condition on Discharge: Serious Activity: Per Instructions section Exercise/Sports: Wait until after follow-up appointment Non-emergency contact: Primary Care Provider Call non-emergency contact if: you have any medication questions, your symptoms worsen, your pain is concerning for you and you have a fever Follow-up/Referrals: PCP,NO [Primary Care Provider] - Diet: Regular Diet Texture: Dental soft (bite-sized) Addtl Attending Provider Instructions: Follow up with your Primary Care Physician in 1 week upon discharge --Complete the antibiotic course (Omnicef) as prescribed. Seek immediate medical attention if your symptoms reoccur or worsen Please take all medications as instructed on discharge list below. Please call if you have any questions or problems. You can reach a [facility] hospitalist on duty at [facility] 24 hours a day by calling [phone] Pending Studies at Discharge: No Stand-Alone Forms: My [facility] Medications and DC Order Prescriptions: New morphine concentrate 100 mg/5 mL (20 mg/mL) Solution 5 mg PO Q4H PRN (Reason: pain) Qty: 15 RF: 0 lorazepam 0.5 mg Tablet 0.5 mg PO Q4H PRN (Reason: agitation) Qty: 12 RF: 0 cefdinir 300 mg Capsule 300 mg PO DAILY Qty: 7 RF: 0 Continued atorvastatin 80 mg tablet 80 mg PO HS RF: 0 hydrocodone-acetaminophen 5-325 mg tablet 1 tab PO Q6H PRN (Reason: Pain) RF: 0 ondansetron HCl 4 mg tablet 4 mg PO Q8H PRN (Reason: Nausea And Vomiting) RF: 0 prochlorperazine maleate 10 mg tablet 10 mg PO Q6H PRN (Reason: Nausea And Vomiting) RF: 0 isosorbide mononitrate 60 mg tablet extended release 24 hr 60 mg PO QAM RF: 0 citalopram 20 mg tablet 20 mg PO HS RF: 0 nitroglycerin 0.4 mg tablet, sublingual 0.4 mg sublingual Q5M PRN (Reason: Chest Pain) RF: 0 docusate sodium [Colace] 100 mg Capsule 100 mg PO QAM RF: 0 mirtazapine 15 mg tablet 7.5 mg PO HS RF: 0 albuterol sulfate 90 mcg/actuation HFA aerosol inhaler 2 puff INHALATION Q6H PRN (Reason: Wheezing) RF: 0 Iron With Vitamin C 1 tab PO QAM RF: 0 bisacodyl [Gentle Laxative (bisacodyl)] 5 mg Tablet,Delayed Release (Dr/Ec) 10 mg PO Q12 PRN (Reason: constipation) Qty: 60 RF: 0 polyethylene glycol 3350 [Miralax] 17 gram Powder In Packet 17 g PO DAILY PRN (Reason: constipation) Qty: 30 RF: 0 Discharge Orders: Discharge Order (Routine); Ordered 10/12/21 Ordered By: Gideon Montano Admission Data Admit Date/Time: 10/10/21 02:51 Attending Provider: Gideon Montano Admit Provider: Milton Ortega Primary Care Provider: PCP,NO Other Providers: Milton Ortega ; Heydi Pop ; [facility] Other Interventions: Discharge Summary Assessment (RN) Last Done: 10/12/21 10:20
[2021-10-12] MEDS ORDERED: MoRPHine SULFATE 5 MG/0.25 ML UDP PO PRN (16:08)
== END 2021-10-12 10:56 | disposition hospice, home (50) | DRG 871 ==
LOC: ED 00:03 → 2W 02:51 → SUATTDRO 02:51 → 2W 05:13
DX: D61.810 Antineoplastic chemotherapy induced pancytopenia; Z66 Do not resuscitate; I12.9 Hypertensive chronic kidney disease with stage 1 through stage 4 chronic kidney disease, or unspecified chronic kidney disease; Z95.5 Presence of coronary angioplasty implant and graft; I25.10 Atherosclerotic heart disease of native coronary artery without angina pectoris; Z51.5 Encounter for palliative care; C64.1 Malignant neoplasm of right kidney, except renal pelvis; E87.2 Acidosis; A41.89 Other specified sepsis; U07.1 COVID-19; Z79.899 Other long term (current) drug therapy; C78.6 Secondary malignant neoplasm of retroperitoneum and peritoneum; T45.1X5A Adverse effect of antineoplastic and immunosuppressive drugs, initial encounter; Z85.51 Personal history of malignant neoplasm of bladder; R11.0 Nausea; D63.1 Anemia in chronic kidney disease; N18.4 Chronic kidney disease, stage 4 (severe); Z87.891 Personal history of nicotine dependence; N17.9 Acute kidney failure, unspecified; R65.20 Severe sepsis without septic shock; N39.0 Urinary tract infection, site not specified; E78.5 Hyperlipidemia, unspecified; R63.0 Anorexia; Z90.6 Acquired absence of other parts of urinary tract; Z88.8 Allergy status to other drugs, medicaments and biological substances; C78.7 Secondary malignant neoplasm of liver and intrahepatic bile duct; B96.89 Other specified bacterial agents as the cause of diseases classified elsewhere; R60.0 Localized edema